=== PATIENT | male | born 1960 | race Caucasian/White ===

== ENCOUNTER 2017-03-18 19:21 | Emergency (ER) | payer BC ==
[2017-03-18] MEDS ORDERED: Acetaminophen TAB* 325 MG PO ONE (20:03)
--- NOTE | 2017-03-18 20:07 | UC ---
HPI Febrile Illness - HPI Summary HPI Summary: 57 YEAR OLD MALE PRESENTS WITH FEVER, CHILLS AND COLD SWEATS. - History of Current Complaint Chief Complaint: UCGeneralIllness Time Seen by Provider: 03/18/17 19:33 - Allergy/Home Medications Allergies/Adverse Reactions: Allergies Allergy/AdvReac Type Severity Reaction Status Date / Time No Known Allergies Allergy Verified 03/18/17 21:34 Home Medications: Home Medications Dasatinib [Sprycel] 20 mg PO 03/18/17 [History] Pravastatin Sodium [Pravachol] 40 mg PO 03/18/17 [History] PMH/Surg Hx/FS Hx/Imm Hx - Surgical History Surgical History: Yes Surgery Procedure, Year, and Place: spinal stenosis cervical, 5 vertebrae fused - Family History Known Family History: Negative: Cardiac Disease, Hypertension, Diabetes - Social History Alcohol Use: None Substance Use Type: None Smoking Status (MU): Never Smoked Tobacco Review of Systems Constitutional: Fever, Chills, Fatigue Skin: Negative Eyes: Negative ENT: Negative Respiratory: Negative Cardiovascular: Negative Gastrointestinal: Negative Genitourinary: Negative Motor: Negative Neurovascular: Negative Musculoskeletal: Negative Neurological: Negative Psychological: Negative All Other Systems Reviewed And Are Negative: Yes Physical Exam Triage Information Reviewed: Yes Appearance: Ill-Appearing Vital Signs: Initial Vital Signs Temp 39.7 C 03/18/17 19:24 Pulse 85 03/18/17 19:24 Resp 20 03/18/17 19:24 BP 116/65 03/18/17 19:24 Pulse Ox 97 03/18/17 19:24 Eye Exam: Normal ENT Exam: Normal Dental Exam: Normal Neck exam: Normal Neck: Positive: 1 Respiratory Exam: Normal Cardiovascular Exam: Normal Abdominal Exam: Normal Musculoskeletal Exam: Normal Neurological Exam: Normal Psychological Exam: Normal Skin Exam: Normal Course/Dx - Diagnoses Clinic Provider Diagnoses: fever. chills. cold sweats Discharge - Discharge Plan Condition: Stable Disposition: HOME Patient Education Materials: Fever in Adults (ED) Referrals: Samuel Yap MD [Primary Care Provider] - Additional Instructions: PATIENT SUGGESTED TO GO TO ER FOR HIGH FEVER.
[2017-03-18 20:45] VITALS: BP 144/74
== END 2017-03-18 20:43 | disposition home or self-care (01) ==
LOC: UCEAST 19:21
DX: R50.9 Fever, unspecified (principal); R61 Generalized hyperhidrosis
CPT/HCPCS: 87502; 99212; A9270-GY; G0463

== ENCOUNTER 2017-03-18 21:22 | Emergency (ER) | payer BC ==
[2017-03-18 23:47] LABS: Hematocrit 33 % (42-52); Hemoglobin 11.3 g/dl (14.0-18.0); Mean Corpuscular HGB Conc 34 g/dl (31-36); Mean Corpuscular Hemoglobin 31 pg (27-31); Mean Corpuscular Volume 91 fL (80-94); Mean Platelet Volume 7 um3 (7.4-10.4); Red Blood Count 3.68 10^6/ul (4.0-5.4); Red Cell Distribution Width 14 % (10.5-15)
[2017-03-18] MEDS ORDERED: Acetaminophen TAB* 325 MG PO ONE (23:54)
[2017-03-19 00:03] LABS: Albumin 4.3 g/dL (3.2-5.2); BUN/Creatinine Ratio 14.6 (8-20); Calcium 9.2 mg/dL (8.6-10.3); EGFR African American 103.8 (>60); EGFR Non-African American 80.7 (>60); Globulin 3.6 g/dL (2-4); Potassium 3.5 mmol/L (3.5-5.0); Total Bilirubin 0.9 mg/dL (0.2-1.0); Total Protein 7.9 g/dL (6.4-8.9)
[2017-03-19 00:53] LABS: Urine Bilirubin Negative (Negative); Urine Glucose Negative (Negative); Urine Nitrite Negative (Negative)
[2017-03-19] MEDS ORDERED: Ibuprofen TAB* 800 MG PO ONE (03:21)
--- NOTE | 2017-03-19 03:24 | ED ---
Debbi Argueta Alfonso, scribed for Ambreen Lester MD on 03/18/17 at 2357 . HPI Febrile Illness - HPI Summary HPI Summary: This patient is a 57 year old M presenting to [facility] with a chief complaint of febrile illness since 3 days ago. The patient rates the pain 3/10 in severity. Symptoms aggravated by nothing. Symptoms alleviated by nothing. Patient reports body aches, tiredness, and scalp lesions (It feels like shingles which I had 4 years ago.). Patient denies rashes, sore throat, urinary symptoms, cough, sinus congestion, and SOB. He denies acknowledged tick bites. He reports exercising two hours a day. PMHx includes chronic myeloid leukemia (diagnosed one year for which he is currently on chemotherapy), HTN, and HLD. - History of Current Complaint Chief Complaint: EDFever Time Seen by Provider: 03/18/17 23:47 Hx Obtained From: Patient Onset/Duration: Started Days Ago - 3, Still Present Timing: Constant Current Severity: Mild Pain Intensity: 3 Pain Scale Used: 0-10 Numeric Aggravating Factors: Nothing Alleviating Factors: Nothing Associated Signs and Symptoms: Other: - body aches, tiredness, and scalp lesions (It feels like shingles which I had 4 years ago.). Patient denies rashes, sore throat, urinary symptoms, cough, sinus congestion, and SOB - Allergy/Home Medications Allergies/Adverse Reactions: Allergies Allergy/AdvReac Type Severity Reaction Status Date / Time No Known Allergies Allergy Verified 03/18/17 21:34 PMH/Surg Hx/FS Hx/Imm Hx Cardiovascular History: Reports: Hx Hypercholesterolemia, Hx Hypertension - Cancer History Cancer Type, Location and Year: CML - Surgical History Surgery Procedure, Year, and Place: spinal stenosis cervical, 5 vertebrae fused Infectious Disease History: No Infectious Disease History: Denies: History Other Infectious Disease, Traveled Outside the [place] in Last 30 Days - Family History Known Family History: Negative: Cardiac Disease, Hypertension, Diabetes - Social History Alcohol Use: None Substance Use Type: Reports: None Smoking Status (MU): Never Smoked Tobacco Review of Systems Positive: Fever Positive: Other - Negative sinus congestion. Negative: Sore Throat Negative: Shortness Of Breath, Cough Positive: no symptoms reported Positive: Myalgia Positive: Other - scalp lesions (It feels like shingles which I had 4 years ago.). Negative: Rash Neurological: Other - tiredness All Other Systems Reviewed And Are Negative: Yes Physical Exam - Summary Physical Exam Summary: General: Well appearing, no pain distress Skin: Warm, Skin Color Reflects Adequate Perfusion, Dry Eyes: EOMI, CHANNING ENT: Pharynx normal, TMs normal Neck: Supple, nontender Respiratory: CTA, breath sounds present, no rhonchi, no wheezes, no rales Cardiovascular: RRR, no murmur, no rub, no gallop Abdomen: Soft, nontender, Non-distended, no guarding, no rebound Bowel: Present Musculoskeletal: SHANNON, No edema Neuro: Sensory/motor intact, A&Ox3, CN intact 2-12 Psych: Affect/mood appropriate Triage Information Reviewed: Yes Vital Signs On Initial Exam: Initial Vitals Temp Pulse Resp BP Pulse Ox 100.2 F 80 18 128/66 97 03/18/17 21:32 03/18/17 21:32 03/18/17 21:32 03/18/17 21:32 03/18/17 21:32 Vital Signs Reviewed: Yes Diagnostics - Vital Signs Vital Signs Temp Pulse Resp BP Pulse Ox 03/18/17 23:49 101.1 F 03/18/17 21:32 100.2 F 80 18 128/66 97 - Laboratory Lab Results: Lab Results 03/18/17 Range/Units 23:25 WBC 5.0 (3.5-10.8) 10^3/ul RBC 3.68 L (4.0-5.4) 10^6/ul Hgb 11.3 L (14.0-18.0) g/dl Hct 33 L (42-52) % MCV 91 (80-94) fL MCH 31 (27-31) pg MCHC 34 (31-36) g/dl RDW 14 (10.5-15) % Plt Count 124 L (150-450) 10^3/ul MPV 7 L (7.4-10.4) um3 Neut % (Auto) 84.6 H (38-83) % Lymph % (Auto) 7.3 L (25-47) % [place]ial[place] % (Auto) 7.7 (1-9) % Eos % (Auto) 0.1 (0-6) % Baso % (Auto) 0.3 (0-2) % Absolute Neuts (auto) 4.2 (1.5-7.7) 10^3/ul Absolute Lymphs (auto) 0.4 L (1.0-4.8) 10^3/ul Absolute Monos (auto) 0.4 (0-0.8) 10^3/ul Absolute Eos (auto) 0 (0-0.6) 10^3/ul Absolute Basos (auto) 0 (0-0.2) 10^3/ul Absolute Nucleated RBC 0.01 10^3/ul Nucleated RBC % 0.2 Result Diagrams: 03/18/17 23:25 03/18/17 23:25 Lab Statement: Any lab studies that have been ordered have been reviewed, and results considered in the medical decision making process. - Radiology CXR Radiology Interpretation Completed By: ED Physician - Negative Course/Dx - Course Course Of Treatment: pt without any localizing symptoms he does have cml but reports that it is under control since diagnosis and he does not usually get antibiotics for uri's. His labs and xray and urine are neg, he denies lyme exposure and will be following with Dr. Yap closely - Diagnoses Provider Diagnoses: Fever Discharge - Discharge Plan Condition: Stable Disposition: HOME Patient Education Materials: Fever in Adults (ED) Referrals: Samuel Yap MD [Primary Care Provider] - 3 Days Additional Instructions: RETURN TO THE EMERGENCY DEPARTMENT FOR CHANGING OR WORSENING SYMPTOMS. The documentation as recorded by the Debbi madrid Alfonso accurately reflects the service I personally performed and the decisions made by , Ambreen Lester MD.
[2017-03-19 03:35] VITALS: BP 130/70
--- NOTE | 2017-03-19 07:46 | RAD ---
HISTORY: Fever COMPARISONS: None VIEWS: 4: Frontal dual-energy and lateral views of the chest. FINDINGS: CARDIOMEDIASTINAL SILHOUETTE: The cardiomediastinal silhouette is normal. ZORAIDA: The zoraida are normal. PLEURA: The costophrenic angles are sharp. No pleural abnormalities are noted. LUNG PARENCHYMA: The lungs are clear. ABDOMEN: The upper abdomen is clear. There is no subphrenic gas. BONES AND SOFT TISSUES: There is postsurgical change to the cervical spine OTHER: None. IMPRESSION: NO ACTIVE CARDIOPULMONARY DISEASE.
== END 2017-03-19 03:37 | disposition home or self-care (01) ==
LOC: ED 21:22
DX: R50.9 Fever, unspecified (principal); R52 Pain, unspecified; R53.1 Weakness
CPT/HCPCS: 36415; 71020; 80053; 81003; 83605; 84484; 85025; 85610; 85730; 87040; 99283; A9270-GY

== ENCOUNTER 2017-03-20 08:10 | Emergency (ER) | payer BC ==
[2017-03-20 08:35] VITALS: BP 108/58
--- NOTE | 2017-03-20 09:13 | UC ---
Skin Complaint HPI - HPI Summary HPI Summary: PT WITH SEVERAL DAYS OF FEVER, MALAISE, FATIGUE AND RASH ON SCALP. CAME HERE TO US 2 DAYS AGO. FLU NEG. SENT TO ER FOR FURTHER EVAL. WENT TO ER AND HAD GROSSLY UNREMARKABLE LABS. NO SPECIFIC DX AT THAT TIME. TOLD TO FOLLOW-UP WITH PCP. PT RETURNS HERE WITH PERSISTENT RASH. STATES HE HAD A SIMILAR THING ABOUT 5 YEARS AGO THAT RESOLVED WITH ABX. PT HAS CML AND IS ON IMMUNOSUPPRESSIVE TX. - History of Current Complaint Chief Complaint: UCRash Time Seen by Provider: 03/20/17 08:36 Stated Complaint: RASH Hx Obtained From: Patient Onset/Duration: Gradual Onset, Lasting Days Timing: Constant Onset Severity: Moderate Current Severity: Moderate Pain Intensity: 6 Pain Scale Used: 0-10 Numeric Location: Other - SCALP Character: Swelling, Redness, Painful Aggravating Factor(s): Touch Alleviating Factor(s): Nothing Associated Signs & Symptoms: Positive: Fever, Rash, Tenderness. Negative: Nausea - Allergy/Home Medications Allergies/Adverse Reactions: Allergies Allergy/AdvReac Type Severity Reaction Status Date / Time No Known Allergies Allergy Verified 03/18/17 21:34 Review of Systems Constitutional: Fever Skin: Rash Respiratory: Negative Cardiovascular: Negative Gastrointestinal: Negative All Other Systems Reviewed And Are Negative: Yes PMH/Surg Hx/FS Hx/Imm Hx Cardiovascular History: Hypertension Other Cancer History: CML - Surgical History Surgical History: Yes Surgery Procedure, Year, and Place: spinal stenosis cervical, 5 vertebrae fused - Family History Known Family History: Negative: Cardiac Disease, Hypertension, Diabetes - Social History Alcohol Use: None Substance Use Type: None Smoking Status (MU): Never Smoked Tobacco Physical Exam Triage Information Reviewed: Yes Appearance: Well-Appearing, No Pain Distress, Well-Nourished Vital Signs: Initial Vital Signs Temp 99.8 F 03/20/17 08:29 Pulse 71 03/20/17 08:29 Resp 18 03/20/17 08:29 BP 108/58 03/20/17 08:29 Pulse Ox 99 03/20/17 08:29 Vital Signs Reviewed: Yes Eyes: Positive: Conjunctiva Clear ENT: Positive: Hearing grossly normal Neck: Positive: Supple Respiratory: Positive: No respiratory distress, No accessory muscle use Cardiovascular: Positive: Pulses Normal Abdomen Description: Positive: Soft Musculoskeletal: Positive: No Edema Neurological: Positive: Alert Psychological: Positive: Age Appropriate Behavior Skin: Positive: rashes - SCALP WITH ERYTHEMA FROM FOREHEAD TO OCCIPUT. TENDER. WARM TO TOUCH. NO DISCRETE LESIONS Course/Dx - Diagnoses Provider Diagnoses: SCALP CELLULITIS Discharge - Discharge Plan Condition: Stable Disposition: HOME Prescriptions: Cephalexin CAP* [Keflex 500 CAP*] 1,000 mg PO BID #40 cap Patient Education Materials: Cellulitis (ED) Referrals: Samuel Yap MD [Primary Care Provider] - If Needed Additional Instructions: FOLLOW-UP WITH YOUR PCP IF YOU DO NOT NOTICE IMPROVEMENT IN YOUR SYMPTOMS OVER THE NEXT 48 HOURS ON ANTIBIOTICS. GO TO THE ER SOONER IF SYMPTOMS WORSEN.
== END 2017-03-20 09:10 | disposition home or self-care (01) ==
LOC: UCEAST 08:10
DX: L03.811 Cellulitis of head [any part, except face] (principal); I10 Essential (primary) hypertension; C92.10 Chronic myeloid leukemia, BCR/ABL-positive, not having achieved remission
CPT/HCPCS: 99212; G0463

== ENCOUNTER 2017-03-22 10:57 | Emergency (ER) | payer BC ==
[2017-03-22 11:07] VITALS: BP 104/68
--- NOTE | 2017-03-22 15:35 | ED ---
Kavita Argueta SooYoung, scribed for Masoud Velez MD on 03/22/17 at 1159 . Skin Complaint - HPI Summary HPI Summary: A 57 y/o M presents to ED with c/o diffuse rash on scalp, R-side forehead, and R periorbital onset three days ago. Pt was seen at [facility] four days ago for not feeling well, he states he had fever and lethargy, no visible rash at that time. Currently, the rash is erythematous, painful, pruritic. His R eye is swollen, but he denies pain and pruritus. Denies visual changes. He's been taking Keflex since which is helping. He notes feeling generally better , less lethargic and is without fever. The rash did not spread toward his eye until this AM. He notes a prev episode about 5 years ago with similar sx, he took an ABX at that time, it went away, he was never given a Dx. PCP is Dr. Yap, went to his office yesterday. - History of Current Complaint Chief Complaint: EDRashSkinAbscess Time Seen by Provider: 03/22/17 11:54 Stated Complaint: SKIN RASH/5DAYS Hx Obtained From: Patient Onset/Duration: Started Days Ago, Still Present Timing: Constant Onset Severity: Moderate Current Severity: Mild Pain Intensity: 2 Pain Scale Used: 0-10 Numeric Skin Location: Diffuse, Face - R forehead, R periorbital, scalp Character: Swelling, Pruritus, Pain, Redness Alleviating Symptom(s): Treatment [employer]: - ABX - Allergy/Home Medications Allergies/Adverse Reactions: Allergies Allergy/AdvReac Type Severity Reaction Status Date / Time No Known Allergies Allergy Verified 03/22/17 11:07 PMH/Surg Hx/FS Hx/Imm Hx Previously Healthy: No Cardiovascular History: Reports: Hx Hypercholesterolemia, Hx Hypertension Sensory History: Denies: Hx Legally Blind Opthamlomology History: Denies: Hx Legally Blind - Cancer History Cancer Type, Location and Year: CML - Surgical History Surgery Procedure, Year, and Place: spinal stenosis cervical, 5 vertebrae fused Infectious Disease History: No Infectious Disease History: Denies: History Other Infectious Disease, Traveled Outside the [place] in Last 30 Days - Family History Known Family History: Negative: Cardiac Disease, Hypertension, Diabetes - Social History Occupation: Employed Full-time Lives: With Family Alcohol Use: None Hx Substance Use: No Substance Use Type: Reports: None Hx Tobacco Use: No Smoking Status (MU): Never Smoked Tobacco Review of Systems Eyes: Other - pos: swelling around R eye Positive: Rash - diffuse All Other Systems Reviewed And Are Negative: Yes Physical Exam Triage Information Reviewed: Yes Vital Signs On Initial Exam: Initial Vitals Temp Pulse Resp BP Pulse Ox 98.7 F 58 14 104/68 99 03/22/17 11:03 03/22/17 11:03 03/22/17 11:03 03/22/17 11:03 03/22/17 11:03 Vital Signs Reviewed: Yes Appearance: Positive: Well-Appearing, No Pain Distress Skin: Positive: Warm, Skin Color Reflects Adequate Perfusion, Dry, Erythema @ - macular erythematous rash over forehead and most of scalp; R-side extends to upper tarsus. rash blanches. Head/Face: Positive: Normal Head/Face Inspection Eyes: Positive: Normal, EOMI - without pain or tenderness ENT: Positive: Normal ENT inspection Neck: Positive: Supple, Nontender Respiratory/Lung Sounds: Positive: Clear to Auscultation, Breath Sounds Present Cardiovascular: Positive: RRR Abdomen Description: Positive: Nontender, Soft Bowel Sounds: Positive: Present Musculoskeletal: Positive: Normal Neurological: Positive: Normal Psychiatric: Positive: Affect/Mood Appropriate Diagnostics - Vital Signs Vital Signs Temp Pulse Resp BP Pulse Ox 03/22/17 11:03 98.7 F 58 14 104/68 99 - Laboratory Lab Statement: Any lab studies that have been ordered have been reviewed, and results considered in the medical decision making process. Course/Dx - Course Course Of Treatment: Mr. Hernandez has had several days of a initially painful and now itchy raised red rash on his arellano. It started after a couple days of not feeling well and having fevers. He was started on Keflex by [facility] and has followed with his PMD and is getting better and feeling better. His rash however which was slightly onto his right upper eyelid is now about alf down his eyelid with a little swelling. It is non-painful and he has full ROM of his eye. I don't think this is cause for concern at this time and that he should continue the Keflex as it appears to be working. - Diagnoses Provider Diagnoses: Cellulitis Discharge - Discharge Plan Condition: Stable Disposition: HOME Patient Education Materials: Cellulitis (ED), Periorbital Cellulitis in Adults (ED) Referrals: Samuel Yap MD [Primary Care Provider] - 3 Days Additional Instructions: Continue your antibiotics as prescribed. Follow up with your primary care provider, Dr. Yap in the next 3 days. Please return to the ED if you experience new or worsening symptoms. The documentation as recorded by the Kavita madrid SooYoung accurately reflects the service I personally performed and the decisions made by me, Masoud Velez MD.
== END 2017-03-22 12:27 | disposition home or self-care (01) ==
LOC: ED 10:57
DX: H00.031 Abscess of right upper eyelid (principal); E78.00 Pure hypercholesterolemia, unspecified; I10 Essential (primary) hypertension
CPT/HCPCS: 99282

== ENCOUNTER 2018-03-31 17:37 | Inpatient (IN) | payer BC ==
[2018-03-31 18:37] LABS: ABS Basophils 0 10^3/ul (0-0.2); ABS Eosinophils 0 10^3/ul (0-0.6); ABS Lymphocytes 0.3 10^3/ul (1.0-4.8); ABS Monocytes 0.5 10^3/ul (0-0.8); ABS Neutrophils 5.8 10^3/ul (1.5-7.7); ABS Nucleated RBC 0 10^3/ul; Eosinophil % 0 % (0-6); Hematocrit 32 % (42-52); Hemoglobin 10.8 g/dl (14.0-18.0); Lymphocyte % 3.9 % (25-47); Mean Corpuscular HGB Conc 34 g/dl (31-36); Mean Corpuscular Hemoglobin 31 pg (27-31); Mean Corpuscular Volume 90 fL (80-94); Mean Platelet Volume 6.9 um3 (7.4-10.4); Nucleated Red Blood Cells % 0; Platelet Count 121 10^3/ul (150-450); Red Blood Count 3.54 10^6/ul (4.00-5.40); Red Cell Distribution Width 15 % (10.5-15); White Blood Count 6.6 10^3/ul (3.5-10.8)
[2018-03-31 18:52] LABS: EGFR Non-African American 78.6 (>60)
[2018-03-31 20:29] LABS: Urine Appearance Cloudy; Urine Blood Negative (Negative); Urine Color Amber; Urine Ketones 1+ (Negative); Urine Protein 1+(30 mg/dL) (Negative); Urine Red Blood Cell Absent (Absent); Urine Specific Gravity 1.026 (1.010-1.030); Urine Urobilinogen Negative (Negative); Urine White Blood Cell Trace(0-5/hpf) (Absent)
[2018-03-31] MEDS ORDERED: Acetaminophen TAB* 325 MG PO ONE (21:01)
[2018-03-31] MEDS ORDERED: Piperacillin/Tazobac ADVAN(*) 3.375 GM in NS 0.9% 100 ML* 100 ML IVPB ONE (21:03)
[2018-03-31] MEDS ORDERED: Vancomycin(*) 1,000 MG in NS 0.9% 250 ML* 250 ML IVPB ONE (21:03)
[2018-03-31] MEDS ORDERED: NS 0.9% 1000 ML* 2,700 ML IV ONE (21:04)
[2018-03-31] MEDS ORDERED: Potassium Chlor TAB* 20 MEQ TAB.ER PO ONE (21:04)
--- NOTE | 2018-03-31 21:10 | ED ---
Abdominal Pain/Male - HPI Summary HPI Summary: A 58 y/o male presents to ED c/o diffuse abdominal pain reaching 6/10 in severity. In the ED room, the patient has a pulse of 75 BPM, O2 saturation of 96 % and blood pressure of 120/69. As per triage, "Pt reports flu like symptoms - body aches, fever up to 102, and abdominal pain. Pt denies N/V/D. 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 Pt currently receiving chemo and radiation". According to the patient he has been experiencing a fever as well as abdominal pain for the past 2 days. He denies any sore throat, SOB or back pain, however is constipated (acute). He stated that he is still on chemotherapy and his latest round was last night. He does not have a port, but takes oral pills for his therapy. He was Dx 2 years ago and has been taking the pills ever since. Oncologist is at [facility]. No pain medications at home. - History of Current Complaint Chief Complaint: EDAbdPain Stated Complaint: FEVER/ABD PAIN/HEADACHE Time Seen by Provider: 03/31/18 20:53 Hx Obtained From: Patient Onset/Duration: Sudden Onset, Lasting Days, Still Present Timing: Constant Severity Initially: Moderate Severity Currently: Moderate Pain Intensity: 6 Pain Scale Used: 0-10 Numeric Location: Diffuse Radiates: No Aggravating Factor(s): Nothing Alleviating Factor(s): Nothing Associated Signs And Symptoms: Positive: Constipation. Negative: Back Pain - Allergies/Home Medications Allergies/Adverse Reactions: Allergies Allergy/AdvReac Type Severity Reaction Status Date / Time No Known Allergies Allergy Verified 03/22/17 11:07 PMH/Surg Hx/FS Hx/Imm Hx Cardiovascular History: Reports: Hx Hypercholesterolemia, Hx Hypertension Sensory History: Denies: Hx Legally Blind Opthamlomology History: Denies: Hx Legally Blind - Cancer History Cancer Type, Location and Year: CML - Surgical History Surgery Procedure, Year, and Place: spinal stenosis cervical, 5 vertebrae fused Infectious Disease History: No Infectious Disease History: Denies: History Other Infectious Disease, Traveled Outside the [place] in Last 30 Days - Family History Known Family History: Negative: Cardiac Disease, Hypertension, Diabetes - Social History Alcohol Use: None Hx Substance Use: No Substance Use Type: Reports: None Hx Tobacco Use: No Smoking Status (MU): Never Smoked Tobacco Review of Systems Positive: Fever Negative: Sore Throat Negative: Shortness Of Breath Positive: Abdominal Pain, Other - POSITIVE: Constipation Positive: Other - NEGATIVE: Back pain All Other Systems Reviewed And Are Negative: Yes Physical Exam - Summary Physical Exam Summary: VITAL SIGNS: Reviewed. GENERAL: Patient is a well-developed and nourished male who is lying comfortable in the stretcher. Patient is not in any acute respiratory distress. HEAD AND FACE: No signs of trauma. No ecchymosis, hematomas or skull depressions. No sinus tenderness. EYES: PERRLA, EOMI x 2, No injected conjunctiva, no nystagmus. EARS: Hearing grossly intact. Ear canals and tympanic membranes are within normal limits. MOUTH: Oropharynx within normal limits. NECK: Supple, trachea is midline, no adenopathy, no JVD, no carotid bruit, no c- spine tenderness, neck with full ROM. CHEST: Symmetric, no tenderness at palpation LUNGS: Clear to auscultation bilaterally. No wheezing or crackles. CVS: Regular rate and rhythm, S1 and S2 present, no murmurs or gallops appreciated. ABDOMEN: Soft, mildly diffuse tenderness. Abdomen is distended. No rebound no guarding, and no masses palpated. Hypoactive bowel sounds EXTREMITIES: FROM in all major joints, no edema, no cyanosis or clubbing. NEURO: Alert and oriented x 3. No acute neurological deficits. Speech is normal and follows commands. SKIN: Dry and warm Triage Information Reviewed: Yes Vital Signs On Initial Exam: Initial Vitals Temp Pulse Resp BP Pulse Ox 99.6 F 75 16 128/65 96 03/31/18 17:52 03/31/18 17:52 03/31/18 17:52 03/31/18 17:52 03/31/18 17:52 Vital Signs Reviewed: Yes Diagnostics - Vital Signs Vital Signs Temp Pulse Resp BP Pulse Ox 03/31/18 20:55 74 120/69 96 03/31/18 20:52 78 96 03/31/18 20:05 100.4 F 77 15 119/56 96 03/31/18 17:52 99.6 F 75 16 128/65 96 - Laboratory Lab Results: Lab Results 03/31/18 03/31/18 03/31/18 Range/Units 18:22 18:22 18:25 WBC 6.6 (3.5-10.8) 10^3/ul RBC 3.54 L (4.00-5.40) 10^6/ul Hgb 10.8 L (14.0-18.0) g/dl Hct 32 L (42-52) % MCV 90 (80-94) fL MCH 31 (27-31) pg MCHC 34 (31-36) g/dl RDW 15 (10.5-15) % Plt Count 121 L (150-450) 10^3/ul MPV 6.9 L (7.4-10.4) um3 Neut % (Auto) 88.5 H (38-83) % Lymph % (Auto) 3.9 L (25-47) % [place] % (Auto) 7.3 H (0-7) % Eos % (Auto) 0 (0-6) % Baso % (Auto) 0.3 (0-2) % Absolute Neuts (auto) 5.8 (1.5-7.7) 10^3/ul Absolute Lymphs (auto) 0.3 L (1.0-4.8) 10^3/ul Absolute Monos (auto) 0.5 (0-0.8) 10^3/ul Absolute Eos (auto) 0 (0-0.6) 10^3/ul Absolute Basos (auto) 0 (0-0.2) 10^3/ul Absolute Nucleated RBC 0 10^3/ul Nucleated RBC % 0 Sodium 133 L (135-145) mmol/L Potassium 3.1 L (3.5-5.0) mmol/L Chloride 103 (101-111) mmol/L Carbon Dioxide 23 (22-32) mmol/L Anion Gap 7 (2-11) mmol/L BUN 16 (6-24) mg/dL Creatinine 0.98 (0.67-1.17) mg/dL Est GFR ( Amer) 95.1 (>60) Est GFR (Non-Af Amer) 78.6 (>60) BUN/Creatinine Ratio 16.3 (8-20) Glucose 116 H (70-100) mg/dL Lactic Acid 0.5 (0.5-2.0) mmol/L Calcium 8.4 L (8.6-10.3) mg/dL Total Bilirubin 1.00 (0.2-1.0) mg/dL AST 19 (13-39) U/L ALT 25 (7-52) U/L Alkaline Phosphatase 44 (34-104) U/L C-Reactive Protein 161.67 H (<8.01) mg/L Total Protein 7.3 (6.4-8.9) g/dL Albumin 4.1 (3.2-5.2) g/dL Globulin 3.2 (2-4) g/dL Albumin/Globulin Ratio 1.3 (1-3) Lipase 13 (11.0-82.0) U/L Urine Color Urine Appearance Urine pH (5-9) Ur Specific [place] (1.010-1.030) Urine Protein (Negative) Urine Ketones (Negative) Urine Blood (Negative) Urine Nitrate (Negative) Urine Bilirubin (Negative) Urine Urobilinogen (Negative) Ur Leukocyte Esterase (Negative) Urine WBC (Auto) (Absent) Urine RBC (Auto) (Absent) Ur Squamous Epith Cells (Absent) Urine Bacteria (Absent) Urine Glucose (Negative) 03/31/18 Range/Units 20:10 WBC (3.5-10.8) 10^3/ul RBC (4.00-5.40) 10^6/ul Hgb (14.0-18.0) g/dl Hct (42-52) % MCV (80-94) fL MCH (27-31) pg MCHC (31-36) g/dl RDW (10.5-15) % Plt Count (150-450) 10^3/ul MPV (7.4-10.4) um3 Neut % (Auto) (38-83) % Lymph % (Auto) (25-47) % [place] % (Auto) (0-7) % Eos % (Auto) (0-6) % Baso % (Auto) (0-2) % Absolute Neuts (auto) (1.5-7.7) 10^3/ul Absolute Lymphs (auto) (1.0-4.8) 10^3/ul Absolute Monos (auto) (0-0.8) 10^3/ul Absolute Eos (auto) (0-0.6) 10^3/ul Absolute Basos (auto) (0-0.2) 10^3/ul Absolute Nucleated RBC 10^3/ul Nucleated RBC % Sodium (135-145) mmol/L Potassium (3.5-5.0) mmol/L Chloride (101-111) mmol/L Carbon Dioxide (22-32) mmol/L Anion Gap (2-11) mmol/L BUN (6-24) mg/dL Creatinine (0.67-1.17) mg/dL Est GFR ( Amer) (>60) Est GFR (Non-Af Amer) (>60) BUN/Creatinine Ratio (8-20) Glucose (70-100) mg/dL Lactic Acid (0.5-2.0) mmol/L Calcium (8.6-10.3) mg/dL Total Bilirubin (0.2-1.0) mg/dL AST (13-39) U/L ALT (7-52) U/L Alkaline Phosphatase (34-104) U/L C-Reactive Protein (<8.01) mg/L Total Protein (6.4-8.9) g/dL Albumin (3.2-5.2) g/dL Globulin (2-4) g/dL Albumin/Globulin Ratio (1-3) Lipase (11.0-82.0) U/L Urine Color Meenakshi Urine Appearance Cloudy Urine pH 5.0 (5-9) Ur Specific [place] 1.026 (1.010-1.030) Urine Protein 1+(30 mg/dl) A (Negative) Urine Ketones 1+ A (Negative) Urine Blood Negative (Negative) Urine Nitrate Negative (Negative) Urine Bilirubin Negative (Negative) Urine Urobilinogen Negative (Negative) Ur Leukocyte Esterase Negative (Negative) Urine WBC (Auto) Trace(0-5/hpf) (Absent) Urine RBC (Auto) Absent (Absent) Ur Squamous Epith Cells Present A (Absent) Urine Bacteria Absent (Absent) Urine Glucose Negative (Negative) Result Diagrams: 03/31/18 18:22 03/31/18 18:25 Lab Statement: Any lab studies that have been ordered have been reviewed, and results considered in the medical decision making process. - Radiology CXR Radiology Interpretation Completed By: ED Physician - No acute process. Pending official report. - CT CT A/P CT Interpretation Completed By: Radiologist - 1. Concerning findings of a primary neoplasm involving the mid transverse colon. Correlation with colonoscopy recommended. 2. Nonspecific right perinephric inflammation with no additional evidence of pyelonephritis. 3. Small right pleural effusion and associated right lower lobe volume loss. ED PHYSICIAN REVIEWED THIS RADIOLOGY REPORT. Re-Evaluation - Re-Evaluation First Eval Re-Evaluation Time: 23:59 Comment: Hospitalist contacted, no report taken. Abdominal Pain Fem Course/Dx - Course Course Of Treatment: A 58 y/o male presents to ED c/o diffuse abdominal pain reaching 6/10 in severity. In the ED room, the patient has a pulse of 75 BPM, O2 saturation of 96% and blood pressure of 120/69. A CT A/P revealed 1. Concerning findings of a primary neoplasm involving the mid transverse colon. Correlation with colonoscopy recommended. 2. Nonspecific right perinephric inflammation with no additional evidence of pyelonephritis. 3. Small right pleural effusion and associated right lower lobe volume loss. A CXR revealed no acute process. In the ED course, the patient recieved Tylenol, Omnipaque, Klor Con Er Tab, Vancomycin, Piperacillin and IV fluids. Patient care was discussed with hospitalist, Dr. Moon who accepts patient for admission. Patient will be admitted with a diagnosis of fever and CML. Patient is agreeable with this plan. - Diagnoses Provider Diagnoses: CML (chronic myelocytic leukemia), Fever - Provider Notifications Discussed Care Of Patient With: Mary Ellen Moon Time Discussed With Above Provider: 03:05 Instructed by Provider To: Other - Accepts patient for admission Discharge - Sign-Out/Discharge Documenting (check all that apply): Patient Departure - ADMIT, Sign-Out Patient Signing out patient TO: Mary Ellen Moon Receiving patient FROM: Eulogio Naidu - Discharge Plan Condition: Stable Disposition: ADMITTED TO [facility] Referrals: Samuel Yap MD [Primary Care Provider] - - Attestation Statements Document Initiated by Rosa Mariaibchantal: Yes Documenting Scribe: Taqueria Ramon Provider For Whom Devang is Documenting (Include Credential): MD Devang Rg Attestation: Taqueria Argueta, mised for Eulogio Naidu MD on 04/01/18 at 9389.
[2018-03-31] MEDS ORDERED: Iohexol 300* (CONTRAST) 10 ML SDV IV ONE (21:42)
--- NOTE | 2018-03-31 23:02 | RAD ---
EXAM: CT Abdomen and Pelvis With Intravenous Contrast EXAM DATE/TIME: 03/31/2018 10:00 PM CLINICAL HISTORY: 58 years old, male; Pain; Abdominal pain; Generalized; Additional info: Abd pain TECHNIQUE: Axial computed tomography images of the abdomen and pelvis with intravenous contrast. All CT scans at this facility use at least one of these dose optimization techniques: automated exposure control; mA and/or kV adjustment per patient size (includes targeted exams where dose is matched to clinical indication); or iterative reconstruction. Coronal and sagittal reformatted images were created and reviewed. CONTRAST: 121 ml of OMNI 300 administered intravenously. COMPARISON: No relevant prior studies available. FINDINGS: Lower thorax: Small right pleural effusion with compressive atelectasis posterior right lower lobe. No left effusion. ABDOMEN: Liver: Normal. No mass. Gallbladder and bile ducts: Normal. No calcified stones. No ductal dilation. Pancreas: Normal. No ductal dilation. Spleen: Normal. No splenomegaly. Adrenals: Normal. No mass. Kidneys and ureters: No renal solid cortical lesions, calculi, or pelvocaliectasis. Mild right perinephric and paranephric stranding. Normal right renal cortical enhancement. Stomach and bowel: Incompletely distended grossly normal stomach. Normal caliber small bowel. Segmental area of circumferential wall thickening involving the mid sigmoid colon (series 601, image 47) with mild prominence of the colon prior to the narrowing. Minimal adjacent meso colonic stranding. The remaining colon is normal. Appendix: Normal caliber appendix without wall thickening or adjacent inflammation. PELVIS: Bladder: Thin-walled bladder with no focal nodularity, perivesicular stranding, or calcifications. Reproductive: Normal sized prostate. Normal seminal vesicles. ABDOMEN and PELVIS: Intraperitoneal space: Normal. No free air. No significant fluid collection. Bones/joints: The spine demonstrates mild degenerative changes at multiple levels. Mild bilateral hip primary osteoarthritis. Soft tissues: Normal. No hernia. Vasculature: The aorta demonstrates mild atherosclerotic calcification. Patent IVC. Lymph nodes: Normal. No enlarged lymph nodes. IMPRESSION: 1. Concerning findings of a primary neoplasm involving the mid transverse colon. Correlation with colonoscopy recommended. 2. Nonspecific right perinephric inflammation with no additional evidence of pyelonephritis. 3. Small right pleural effusion and associated right lower lobe volume loss. To contact [facility] with a general question: [facility] - [phone] For direct physician to physician contact: Physician Hotline - [phone] [facility] (ad Facility ID #[id number])
[2018-04-01] MEDS ORDERED: NS 0.9% 1000 ML* 1,000 ML IV SCH (03:15)
--- NOTE | 2018-04-01 03:37 | ADMNOTE ---
Subjective Date of Service: 04/01/18 Interval History: this is a h/p for admission hpi 58 yr old wm with hx of cml still on oral tx still presented to er with c/o of fever to 102 one day with associated abd pain for 2 days. pt described as intermittant dull type localized intensity 5/10. bm makes it better nothing has made it worse. constipation for one day as well. last colonoscopy was 1 yr ago and was told it was good. fever to 38.5. blood culture done and started with vanco and zosyn initial wbc is 13.5 Family History: Findings - denied htn/cm/cad/cva/cml Social History: Findings - no cig for 30 yrs no etoh for 12 yrs no ivda walks indept lives alone Past Medical History: Findings - phx cml chronic anemia hg is 10.5 base hx of etoh but quit 12 yrs ago spinal stenosis htn chronic insomnia pshx one Review of Systems - Measurements Intake and Output: Intake and Output Last 24 Hours 03/29/18 03/30/18 03/31/18 04/01/18 06:59 06:59 06:59 06:59 Intake Total 2950 Balance 2950 Weight 200 lb Intake: IV Fluids 2950 Objective Active Medications: Acetaminophen (Tylenol Tab*) 650 mg PO Q4H PRN PRN Reason: FEVER/PAIN Heparin Sodium (Porcine) (Heparin Vial(*)) 5,000 units SUBCUT Q8HR [facility] Sodium Chloride (Ns 0.9% 1000 Ml*) 1,000 mls @ 100 mls/hr IV PER RATE [facility] Stop: 04/01/18 13:14 Piperacillin Sod/Tazobactam (Sod 3.375 gm/ Sodium Chloride) 100 mls @ 25 mls/ hr IVPB Q8HR [facility] Vancomycin HCl / Sodium (Chloride) 250 mls @ 166.667 mls/hr IVPB .CONTINUE PROTOCOL JESUS; Protocol Vital Signs - 8 hr 03/31/18 03/31/18 03/31/18 20:05 20:52 20:55 Temperature 100.4 F Pulse Rate 77 78 74 Respiratory 15 Rate Blood Pressure 119/56 120/69 (mmHg) O2 Sat by Pulse 96 96 96 Oximetry 03/31/18 03/31/18 03/31/18 21:00 22:08 23:00 Temperature Pulse Rate 76 70 62 Respiratory Rate Blood Pressure (mmHg) O2 Sat by Pulse 97 97 96 Oximetry 04/01/18 04/01/18 04/01/18 00:00 00:02 00:25 Temperature Pulse Rate 61 63 69 Respiratory Rate Blood Pressure 124/76 (mmHg) O2 Sat by Pulse 97 96 98 Oximetry 04/01/18 04/01/18 01:00 02:00 Temperature Pulse Rate 66 64 Respiratory Rate Blood Pressure (mmHg) O2 Sat by Pulse 98 97 Oximetry Eyes: No Scleral Icterus, PERRLA Ears/Nose/Mouth/Throat: NL Teeth, Lips, Gums, Clear Oropharnyx, Mucous Membranes Moist Neck: NL Appearance and Movements; NL JVP, Trachea Midline, No Thyroid Enlargement, Masses Respiratory: Symmetrical Chest Expansion and Respiratory Effort, Clear to Auscultation Cardiovascular: NL Sounds; No Murmurs; No JVD, RRR, No Edema Abdominal: - - + bs Extremities: No Edema, No Clubbing, Cyanosis, - Skin: No Rash or Ulcers Neurological: Alert and Oriented x 3, NL Sensation, NL Muscle Strength and Tone Result Diagrams: 04/03/18 07:05 04/03/18 07:05 Additional Lab and Data: Lab Results 03/31/18 03/31/18 03/31/18 Range/Units 18:22 18:22 18:25 WBC 6.6 (3.5-10.8) 10^3/ul RBC 3.54 L (4.00-5.40) 10^6/ul Hgb 10.8 L (14.0-18.0) g/dl Hct 32 L (42-52) % MCV 90 (80-94) fL MCH 31 (27-31) pg MCHC 34 (31-36) g/dl RDW 15 (10.5-15) % Plt Count 121 L (150-450) 10^3/ul MPV 6.9 L (7.4-10.4) um3 Neut % (Auto) 88.5 H (38-83) % Lymph % (Auto) 3.9 L (25-47) % [place] % (Auto) 7.3 H (0-7) % Eos % (Auto) 0 (0-6) % Baso % (Auto) 0.3 (0-2) % Absolute Neuts (auto) 5.8 (1.5-7.7) 10^3/ul Absolute Lymphs (auto) 0.3 L (1.0-4.8) 10^3/ul Absolute Monos (auto) 0.5 (0-0.8) 10^3/ul Absolute Eos (auto) 0 (0-0.6) 10^3/ul Absolute Basos (auto) 0 (0-0.2) 10^3/ul Absolute Nucleated RBC 0 10^3/ul Nucleated RBC % 0 Sodium 133 L (135-145) mmol/L Potassium 3.1 L (3.5-5.0) mmol/L Chloride 103 (101-111) mmol/L Carbon Dioxide 23 (22-32) mmol/L Anion Gap 7 (2-11) mmol/L BUN 16 (6-24) mg/dL Creatinine 0.98 (0.67-1.17) mg/dL Est GFR ( Amer) 95.1 (>60) Est GFR (Non-Af Amer) 78.6 (>60) BUN/Creatinine Ratio 16.3 (8-20) Glucose 116 H (70-100) mg/dL Lactic Acid 0.5 (0.5-2.0) mmol/L Calcium 8.4 L (8.6-10.3) mg/dL Total Bilirubin 1.00 (0.2-1.0) mg/dL AST 19 (13-39) U/L ALT 25 (7-52) U/L Alkaline Phosphatase 44 (34-104) U/L C-Reactive Protein 161.67 H (<8.01) mg/L Total Protein 7.3 (6.4-8.9) g/dL Albumin 4.1 (3.2-5.2) g/dL Globulin 3.2 (2-4) g/dL Albumin/Globulin Ratio 1.3 (1-3) Lipase 13 (11.0-82.0) U/L Urine Color Urine Appearance Urine pH (5-9) Ur Specific [place] (1.010-1.030) Urine Protein (Negative) Urine Ketones (Negative) Urine Blood (Negative) Urine Nitrate (Negative) Urine Bilirubin (Negative) Urine Urobilinogen (Negative) Ur Leukocyte Esterase (Negative) Urine WBC (Auto) (Absent) Urine RBC (Auto) (Absent) Ur Squamous Epith Cells (Absent) Urine Bacteria (Absent) Urine Glucose (Negative) 10/10/18 Range/Units 20:10 WBC (3.5-10.8) 10^3/ul RBC (4.00-5.40) 10^6/ul Hgb (14.0-18.0) g/dl Hct (42-52) % MCV (80-94) fL MCH (27-31) pg MCHC (31-36) g/dl RDW (10.5-15) % Plt Count (150-450) 10^3/ul MPV (7.4-10.4) um3 Neut % (Auto) (38-83) % Lymph % (Auto) (25-47) % [place] % (Auto) (0-7) % Eos % (Auto) (0-6) % Baso % (Auto) (0-2) % Absolute Neuts (auto) (1.5-7.7) 10^3/ul Absolute Lymphs (auto) (1.0-4.8) 10^3/ul Absolute Monos (auto) (0-0.8) 10^3/ul Absolute Eos (auto) (0-0.6) 10^3/ul Absolute Basos (auto) (0-0.2) 10^3/ul Absolute Nucleated RBC 10^3/ul Nucleated RBC % Sodium (135-145) mmol/L Potassium (3.5-5.0) mmol/L Chloride (101-111) mmol/L Carbon Dioxide (22-32) mmol/L Anion Gap (2-11) mmol/L BUN (6-24) mg/dL Creatinine (0.67-1.17) mg/dL Est GFR ( Amer) (>60) Est GFR (Non-Af Amer) (>60) BUN/Creatinine Ratio (8-20) Glucose (70-100) mg/dL Lactic Acid (0.5-2.0) mmol/L Calcium (8.6-10.3) mg/dL Total Bilirubin (0.2-1.0) mg/dL AST (13-39) U/L ALT (7-52) U/L Alkaline Phosphatase (34-104) U/L C-Reactive Protein (<8.01) mg/L Total Protein (6.4-8.9) g/dL Albumin (3.2-5.2) g/dL Globulin (2-4) g/dL Albumin/Globulin Ratio (1-3) Lipase (11.0-82.0) U/L Urine Color Meenakshi Urine Appearance Cloudy Urine pH 5.0 (5-9) Ur Specific [place] 1.026 (1.010-1.030) Urine Protein 1+(30 mg/dl) A (Negative) Urine Ketones 1+ A (Negative) Urine Blood Negative (Negative) Urine Nitrate Negative (Negative) Urine Bilirubin Negative (Negative) Urine Urobilinogen Negative (Negative) Ur Leukocyte Esterase Negative (Negative) Urine WBC (Auto) Trace(0-5/hpf) (Absent) Urine RBC (Auto) Absent (Absent) Ur Squamous Epith Cells Present A (Absent) Urine Bacteria Absent (Absent) Urine Glucose Negative (Negative) Microbiology and Other Data: Microbiology 04/01/18 00:45 Influenza Types A,B Antigen - Final Nasopharyngeal Specimen received for Influenza A/B Molecular testing Assess/Plan/Problems-Billing Assessment: 58 yr old wm with hx of cml on oral med daily presented to er with c/o of llq abd pain with constipation and fever ct abd + colon mass pt got zosyn and vanco from er - Patient Problems (1) Colonic mass Current Visit: Yes Status: Acute Code(s): K63.9 - DISEASE OF INTESTINE, UNSPECIFIED SNOMED Code(s): 142759848 (2) Abdominal pain Current Visit: Yes Status: Acute Code(s): R10.9 - UNSPECIFIED ABDOMINAL PAIN SNOMED Code(s): 64290332 Comment: no sig pain serial abdominal exams (3) HTN (hypertension) Current Visit: Yes Status: Acute Code(s): I10 - ESSENTIAL (PRIMARY) HYPERTENSION SNOMED Code(s): 06650936 Comment: wnl continue outpt med (4) Insomnia Current Visit: Yes Status: Chronic Code(s): G47.00 - INSOMNIA, UNSPECIFIED SNOMED Code(s): 418534624 Comment: prn trazadone (5) Chronic anemia Current Visit: Yes Status: Acute Code(s): D64.9 - ANEMIA, UNSPECIFIED SNOMED Code(s): 706254963 Comment: stable moninter cbc trend
[2018-04-01] MEDS ORDERED: Indomethacin CAP* 50 MG PO PRN (03:51)
[2018-04-01] MEDS ORDERED: Vancomycin(*) 0 MG in NS 0.9% 250 ML* 250 ML IVPB SCH (04:00)
[2018-04-01] MEDS ORDERED: Vancomycin per Pharmacy* NOTE FOLLOW UP PRN (05:08)
[2018-04-01] MEDS: Piperacillin/Tazobac ADVAN(*) 3.375 GM in NS 0.9% 100 ML* 100 ML IVPB SCH ×3 (05:55→21:07)
[2018-04-01] MEDS: Heparin VIAL(*) 5000 UNITS/ML VIAL (FIVE THOUSAND) SUBCUT SCH ×3 (05:56→21:48)
[2018-04-01] MEDS ORDERED: DASATINIB PO SCH (06:00)
[2018-04-01 06:40] LABS: INR 1.1 (0.77-1.02)
[2018-04-01 06:46] LABS: EGFR Non-African American 84.5 (>60)
[2018-04-01 07:48] LABS: ABS Basophils 0 10^3/ul (0-0.2); ABS Eosinophils 0 10^3/ul (0-0.6); ABS Lymphocytes 0.3 10^3/ul (1.0-4.8); ABS Monocytes 0.5 10^3/ul (0-0.8); ABS Neutrophils 4.2 10^3/ul (1.5-7.7); ABS Nucleated RBC 0 10^3/ul; Eosinophil % 0.2 % (0-6); Hematocrit 31 % (42-52); Hemoglobin 10.9 g/dl (14.0-18.0); Lymphocyte % 5.2 % (25-47); Mean Corpuscular HGB Conc 36 g/dl (31-36); Mean Corpuscular Hemoglobin 32 pg (27-31); Mean Corpuscular Volume 89 fL (80-94); Nucleated Red Blood Cells % 0.2; Red Blood Count 3.43 10^6/ul (4.00-5.40); Red Cell Distribution Width 16 % (10.5-15); White Blood Count 4.9 10^3/ul (3.5-10.8)
--- NOTE | 2018-04-01 07:58 | RAD ---
HISTORY: Fever COMPARISONS: March 18, 2017 VIEWS: 1: frontal AP view of the chest at 9:26 PM FINDINGS: LINES AND TUBES: None. CARDIOMEDIASTINAL SILHOUETTE: The cardiomediastinal silhouette is normal for portable technique. PLEURA: The costophrenic angles are sharp. No pleural abnormalities are noted. LUNG PARENCHYMA: There is minimal patchy alveolar opacification of the right lung base. ABDOMEN: The upper abdomen is clear. There is no subphrenic gas. BONES AND SOFT TISSUES: Degenerative changes are noted. The patient is status post cervical fusion. IMPRESSION: MILD RIGHT BASILAR ATELECTASIS VERSUS EARLY CONSOLIDATION. R0
--- NOTE | 2018-04-01 08:46 | PN ---
<Mary Ellen Moon - Last Filed: 04/01/18 08:57> Subjective Family History: Findings - denied any htn/dm/cad/cva or cml from family Social History: Findings - quit cig 30 yrs ago quit etoh 12 yrs ago no ivda lives alone able to walk indept Past Medical History: Findings - cml on chemo hx of etoh but quit 12 yrs ago htn gout insomnia melissa spinal stenosis pshx denied Objective Active Medications: Acetaminophen (Tylenol Tab*) 650 mg PO Q4H PRN PRN Reason: FEVER/PAIN Atorvastatin Calcium (Lipitor*) 10 mg PO 2100 [facility] Heparin Sodium (Porcine) (Heparin Vial(*)) 5,000 units SUBCUT Q8HR [facility] Last Admin: 04/01/18 05:56 Dose: 5,000 units Sodium Chloride (Ns 0.9% 1000 Ml*) 1,000 mls @ 100 mls/hr IV PER RATE [facility] Stop: 04/01/18 13:14 Last Admin: 04/01/18 05:00 Dose: 100 mls/hr Piperacillin Sod/Tazobactam (Sod 3.375 gm/ Sodium Chloride) 100 mls @ 25 mls/ hr IVPB Q8H [facility] Last Admin: 04/01/18 05:55 Dose: 25 mls/hr Vancomycin HCl 1,500 mg/ (Sodium Chloride) 250 mls @ 166.667 mls/hr IVPB Q12H [facility] Indomethacin (Indocin Cap*) 50 mg PO TID PRN PRN Reason: PAIN Losartan Potassium (Cozaar Tab*) 50 mg PO 2100 JESUS Pto Nf Med* Dasatanib (Sprycel) 140 Mg Tablet 140 admin PO 0600 [facility] Last Admin: 04/01/18 06:12 Dose: 140 admin Pharmacy Consult (Vancomycin Per Pharmacy*) 1 note FOLLOW UP . PRN PRN Reason: PER PROTOCOL Pharmacy Profile Note (Vancomycin Trough Check) 1 note FOLLOW UP 1030 ONE Stop: 04/03/18 10:31 Trazodone HCl (Desyrel Tab*) 150 mg PO BEDTIME [facility] Vital Signs - 8 hr 04/01/18 04/01/18 04/01/18 01:00 02:00 03:04 Temperature Pulse Rate 66 64 75 Respiratory Rate Blood Pressure (mmHg) O2 Sat by Pulse 98 97 97 Oximetry 04/01/18 04/01/18 04/01/18 03:18 04:00 04:51 Temperature 100.0 F Pulse Rate 72 79 78 Respiratory 18 Rate Blood Pressure 128/71 128/71 (mmHg) O2 Sat by Pulse 96 97 100 Oximetry 04/01/18 04/01/18 05:15 07:48 Temperature 99.3 F 99.6 F Pulse Rate 84 70 Respiratory 22 18 Rate Blood Pressure 142/68 148/78 (mmHg) O2 Sat by Pulse 98 97 Oximetry Eyes: No Scleral Icterus, PERRLA Ears/Nose/Mouth/Throat: NL Teeth, Lips, Gums, Clear Oropharnyx, Mucous Membranes Moist Neck: NL Appearance and Movements; NL JVP, Trachea Midline, No Thyroid Enlargement, Masses Respiratory: Symmetrical Chest Expansion and Respiratory Effort, Clear to Auscultation Cardiovascular: NL Sounds; No Murmurs; No JVD, RRR, No Edema Abdominal: - - + bs soft non tender but distened Extremities: No Edema, No Clubbing, Cyanosis Skin: No Rash or Ulcers Neurological: Alert and Oriented x 3, NL Sensation, NL Muscle Strength and Tone Result Diagrams: 04/01/18 05:52 04/01/18 05:52 Microbiology and Other Data: Microbiology 04/01/18 00:45 Influenza Types A,B Antigen - Final Nasopharyngeal Specimen received for Influenza A/B Molecular testing EKG Data: ekg ns no acute st t changes <Renetta Thomas - Last Filed: 04/01/18 18:28> Subjective Date of Service: 04/01/18 Interval History: Patient reports he continues to feel a little unwell with mild temp, mild MARLOW but reports he feels a little better than yesterday. He continues to have significant abdominal bloating with "lots of gas moving around" but reports pain has improved since having a bowel movement. No N/V. Objective Active Medications: Acetaminophen (Tylenol Tab*) 650 mg PO Q4H PRN PRN Reason: FEVER/PAIN Atorvastatin Calcium (Lipitor*) 10 mg PO 2100 J[facility]US Heparin Sodium (Porcine) (Heparin Vial(*)) 5,000 units SUBCUT Q8HR [facility] Last Admin: 04/01/18 05:56 Dose: 5,000 units Sodium Chloride (Ns 0.9% 1000 Ml*) 1,000 mls @ 100 mls/hr IV PER RATE [facility] Stop: 04/01/18 13:14 Last Admin: 04/01/18 05:00 Dose: 100 mls/hr Piperacillin Sod/Tazobactam (Sod 3.375 gm/ Sodium Chloride) 100 mls @ 25 mls/ hr IVPB Q8H [facility] Last Admin: 04/01/18 05:55 Dose: 25 mls/hr Vancomycin HCl 1,500 mg/ (Sodium Chloride) 250 mls @ 166.667 mls/hr IVPB Q12H [facility] Indomethacin (Indocin Cap*) 50 mg PO TID PRN PRN Reason: PAIN Losartan Potassium (Cozaar Tab*) 50 mg PO 2100 [facility] Pto Nf Med* Dasatanib (Sprycel) 140 Mg Tablet 140 admin PO 0600 [facility] Last Admin: 04/01/18 06:12 Dose: 140 admin Pharmacy Consult (Vancomycin Per Pharmacy*) 1 note FOLLOW UP . PRN PRN Reason: PER PROTOCOL Pharmacy Profile Note (Vancomycin Trough Check) 1 note FOLLOW UP 1030 ONE Stop: 04/03/18 10:31 Trazodone HCl (Desyrel Tab*) 150 mg PO BEDTIME [facility] Vital Signs - 8 hr 04/01/18 04/01/18 04/01/18 01:00 02:00 03:04 Temperature Pulse Rate 66 64 75 Respiratory Rate Blood Pressure (mmHg) O2 Sat by Pulse 98 97 97 Oximetry 04/01/18 04/01/18 04/01/18 03:18 04:00 04:51 Temperature 100.0 F Pulse Rate 72 79 78 Respiratory 18 Rate Blood Pressure 128/71 128/71 (mmHg) O2 Sat by Pulse 96 97 100 Oximetry 04/01/18 04/01/18 05:15 07:48 Temperature 99.3 F 99.6 F Pulse Rate 84 70 Respiratory 22 18 Rate Blood Pressure 142/68 148/78 (mmHg) O2 Sat by Pulse 98 97 Oximetry Oxygen Devices in Use Now: None Appearance: 58 yo male A+Ox3 in NAD Eyes: No Scleral Icterus, PERRLA Ears/Nose/Mouth/Throat: NL Teeth, Lips, Gums, Mucous Membranes Moist Respiratory: Symmetrical Chest Expansion and Respiratory Effort, Clear to Auscultation Cardiovascular: NL Sounds; No Murmurs; No JVD, RRR, No Edema Abdominal: - Extremities: No Edema, No Clubbing, Cyanosis Skin: No Rash or Ulcers Neurological: Alert and Oriented x 3, NL Sensation, NL Muscle Strength and Tone Lines/Tubes/Other Access: Clean, Dry and Intact Peripheral IV Nutrition: Taking PO's Result Diagrams: 04/01/18 05:52 04/01/18 05:52 Additional Lab and Data: Lab Results 03/31/18 03/31/18 03/31/18 Range/Units 18:22 18:22 18:25 WBC 6.6 (3.5-10.8) 10^3/ul RBC 3.54 L (4.00-5.40) 10^6/ul Hgb 10.8 L (14.0-18.0) g/dl Hct 32 L (42-52) % MCV 90 (80-94) fL MCH 31 (27-31) pg MCHC 34 (31-36) g/dl RDW 15 (10.5-15) % Plt Count 121 L (150-450) 10^3/ul MPV 6.9 L (7.4-10.4) um3 Neut % (Auto) 88.5 H (38-83) % Lymph % (Auto) 3.9 L (25-47) % Hayes % (Auto) 7.3 H (0-7) % Eos % (Auto) 0 (0-6) % Baso % (Auto) 0.3 (0-2) % Absolute Neuts (auto) 5.8 (1.5-7.7) 10^3/ul Absolute Lymphs (auto) 0.3 L (1.0-4.8) 10^3/ul Absolute Monos (auto) 0.5 (0-0.8) 10^3/ul Absolute Eos (auto) 0 (0-0.6) 10^3/ul Absolute Basos (auto) 0 (0-0.2) 10^3/ul Absolute Nucleated RBC 0 10^3/ul Nucleated RBC % 0 Sodium 133 L (135-145) mmol/L Potassium 3.1 L (3.5-5.0) mmol/L Chloride 103 (101-111) mmol/L Carbon Dioxide 23 (22-32) mmol/L Anion Gap 7 (2-11) mmol/L BUN 16 (6-24) mg/dL Creatinine 0.98 (0.67-1.17) mg/dL Est GFR ( Amer) 95.1 (>60) Est GFR (Non-Af Amer) 78.6 (>60) BUN/Creatinine Ratio 16.3 (8-20) Glucose 116 H (70-100) mg/dL Lactic Acid 0.5 (0.5-2.0) mmol/L Calcium 8.4 L (8.6-10.3) mg/dL Total Bilirubin 1.00 (0.2-1.0) mg/dL AST 19 (13-39) U/L ALT 25 (7-52) U/L Alkaline Phosphatase 44 (34-104) U/L C-Reactive Protein 161.67 H (<8.01) mg/L Total Protein 7.3 (6.4-8.9) g/dL Albumin 4.1 (3.2-5.2) g/dL Globulin 3.2 (2-4) g/dL Albumin/Globulin Ratio 1.3 (1-3) Lipase 13 (11.0-82.0) U/L Urine Color Urine Appearance Urine pH (5-9) Ur Specific [place] (1.010-1.030) Urine Protein (Negative) Urine Ketones (Negative) Urine Blood (Negative) Urine Nitrate (Negative) Urine Bilirubin (Negative) Urine Urobilinogen (Negative) Ur Leukocyte Esterase (Negative) Urine WBC (Auto) (Absent) Urine RBC (Auto) (Absent) Ur Squamous Epith Cells (Absent) Urine Bacteria (Absent) Urine Glucose (Negative) 03/31/18 Range/Units 20:10 WBC (3.5-10.8) 10^3/ul RBC (4.00-5.40) 10^6/ul Hgb (14.0-18.0) g/dl Hct (42-52) % MCV (80-94) fL MCH (27-31) pg MCHC (31-36) g/dl RDW (10.5-15) % Plt Count (150-450) 10^3/ul MPV (7.4-10.4) um3 Neut % (Auto) (38-83) % Lymph % (Auto) (25-47) % Hayes % (Auto) (0-7) % Eos % (Auto) (0-6) % Baso % (Auto) (0-2) % Absolute Neuts (auto) (1.5-7.7) 10^3/ul Absolute Lymphs (auto) (1.0-4.8) 10^3/ul Absolute Monos (auto) (0-0.8) 10^3/ul Absolute Eos (auto) (0-0.6) 10^3/ul Absolute Basos (auto) (0-0.2) 10^3/ul Absolute Nucleated RBC 10^3/ul Nucleated RBC % Sodium (135-145) mmol/L Potassium (3.5-5.0) mmol/L Chloride (101-111) mmol/L Carbon Dioxide (22-32) mmol/L Anion Gap (2-11) mmol/L BUN (6-24) mg/dL Creatinine (0.67-1.17) mg/dL Est GFR ( Amer) (>60) Est GFR (Non-Af Amer) (>60) BUN/Creatinine Ratio (8-20) Glucose (70-100) mg/dL Lactic Acid (0.5-2.0) mmol/L Calcium (8.6-10.3) mg/dL Total Bilirubin (0.2-1.0) mg/dL AST (13-39) U/L ALT (7-52) U/L Alkaline Phosphatase (34-104) U/L C-Reactive Protein (<8.01) mg/L Total Protein (6.4-8.9) g/dL Albumin (3.2-5.2) g/dL Globulin (2-4) g/dL Albumin/Globulin Ratio (1-3) Lipase (11.0-82.0) U/L Urine Color Meenakshi Urine Appearance Cloudy Urine pH 5.0 (5-9) Ur Specific [place] 1.026 (1.010-1.030) Urine Protein 1+(30 mg/dl) A (Negative) Urine Ketones 1+ A (Negative) Urine Blood Negative (Negative) Urine Nitrate Negative (Negative) Urine Bilirubin Negative (Negative) Urine Urobilinogen Negative (Negative) Ur Leukocyte Esterase Negative (Negative) Urine WBC (Auto) Trace(0-5/hpf) (Absent) Urine RBC (Auto) Absent (Absent) Ur Squamous Epith Cells Present A (Absent) Urine Bacteria Absent (Absent) Urine Glucose Negative (Negative) Microbiology and Other Data: Microbiology 04/01/18 00:45 Influenza Types A,B Antigen - Final Nasopharyngeal Specimen received for Influenza A/B Molecular testing Assess/Plan/Problems-Billing Assessment: 58 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 - started with Fever, chills (rigors?), body aches, abdominal pain/ and distention - abdominal pain improved after formed BM, but continues to have distention. CT scan showing concern for mid-transverse colon mass. Discussed with GI - plan for colonoscopy tomorrow. GI prep to be given this evening. Pt did have normal colonoscopy within the last fews years. - continue vanco/zosyn until blood cx result. - fever now low grade. No leukocytosis. - Hold Sprycel - discussed with Dr. Steele oncologist - should hold med in setting of acute infection. Pt reported his onc office recommended holding for 2 -3 days prior to colonoscopy they think in regards to bleeding risk - Dr. Steele did not think this was necessary and could go ahead with procedure tomorrow. (2) Colonic mass Comment: npo except meds gi consult pending (3) Abdominal pain Comment: no sig pain serial abdominal exams (4) Chronic anemia Status: Acute Comment: stable moninter cbc trend (5) HTN (hypertension) Comment: wnl continue outpt med (6) Insomnia Comment: prn trazadone Status and Disposition: inpatient with fever, possible colonic mass
[2018-04-01] MEDS ORDERED: Indomethacin CAP* 50 MG PO SCH (09:00)
[2018-04-01] MEDS: Vancomycin(*) 1,500 MG in NS 0.9% 250 ML* 250 ML IVPB SCH ×2 (10:28→23:55)
[2018-04-01] MEDS: Acetaminophen TAB* 325 MG PO PRN ×2 (13:34→18:00)
[2018-04-01] MEDS ORDERED: Pneumococcal *Vac Polyvalent 0.5 ML VIAL IM ONE (14:00)
[2018-04-01] MEDS ORDERED: PEG 3000 GI LAVAGE* 1 GALLON PO ONE (17:00)
--- NOTE | 2018-04-01 19:35 | CONS ---
CONSULTATION REPORT: DATE OF CONSULT: 04/01/18 REQUESTING PROVIDER: Dr. Mary Ellen Moon. REASON FOR CONSULT: Abnormal CT scan. HISTORY OF PRESENT ILLNESS: This is a very pleasant 58-year-old male with past medical history of CML, who presented with abdominal pain for 2 days. He described it as intermittent and dull and associated with new-onset constipation. He does take stool softeners on a chronic basis, but states that pain has been worse over the last few days. He denies any gross black or blood in the stool. He does feel better after the bowel movement. He had a subjective fever at home, but no further fever, chills, or rigors since admission. He denies any reflux, heartburn. Denies any dysphagia or odynophagia. No nausea or emesis. He has been on Gleevec for his CML with good response and is followed by an oncology group at [facility]. Currently, he states that he has minimal abdominal pain. Denies any skin rashes or lesions. No shortness of breath or chest pain. PAST MEDICAL HISTORY: CML, spinal stenosis, and insomnia. PAST SURGICAL HISTORY: He had a colonoscopy with Dr. Bennett Berrios on 10/17/16 , the preparation was poor, he did have hepatic flexure polyp, there was a tubular adenoma and sigmoid diverticulosis coli. ALLERGIES: No known drug allergies. FAMILY HISTORY: Denies any history of GI cancer or inflammatory bowel disease. SOCIAL HISTORY: Prior tobacco smoker. Prior alcohol user. No history of IV drug use. REVIEW OF SYSTEMS: The remainder of the 14-point review of systems is grossly negative. DICTATION ENDS ABRUPTLY [id number]/[facility] #: [id number] [facility]ITAL[facility]el[facility]
[2018-04-01] MEDS: Losartan TAB* 25 MG PO SCH (20:57)
[2018-04-01] MEDS: traZODone TAB* 50 MG TAB PO SCH (20:57)
[2018-04-01] MEDS: Atorvastatin* 10 MG TAB PO SCH (20:57)
--- NOTE | 2018-04-01 21:45 | CONS ---
CC: Dr. Mary Ellen Moon CONSULTATION REPORT: DATE OF CONSULT: 04/01/18 REQUESTING PHYSICIAN: Dr. Mary Ellen Moon. REASON FOR CONSULT: Abnormal CAT scan. HISTORY OF PRESENT ILLNESS: This is a very pleasant 58-year-old male with a past medical history of CML, who is on oral dasatinib therapy for the last year and half or so, who initially presented to the ER with a subjective fever and abdominal pain. He states that he has been increasingly constipated over the last 4 to 5 days, but on deeper questioning he admits to more frequent constipation requiring the use of both MiraLAX and stool softeners over the last few months. The pain is intermittent, cramping in the lower quadrant. It is certainly better after a bowel movement. He initially had some possible shakes when he arrived, but has had no more fever, chills, or rigors since admission here. He did have a previous colonoscopy with Dr. Subhash Berrios in September of 2016, for which there was a poor preparation and a tubular adenoma was identified. He denies any gross melena or hematochezia. No nausea or emesis. No dysphagia or odynophagia. No significant heartburn on a regular basis. He denies any significant weight loss or gain. PAST MEDICAL HISTORY: Chronic CML, spinal stenosis, and chronic insomnia. PAST SURGICAL HISTORY: As above mentioned, colonoscopy in September of 2016, with Dr. Subhash Berrios, revealed a tubular adenoma and poor prep. HOME MEDICATIONS: Include: 1. Dasatinib. 2. Indomethacin. 3. Losartan/hydrochlorothiazide. 4. Pravastatin. 5. Trazodone. ALLERGIES: No known drug allergies. FAMILY HISTORY: Denies any colon cancer or GI cancer. SOCIAL HISTORY: Prior tobacco user. Prior alcohol, but none in 12 years. REVIEW OF SYSTEMS: The remainder of the 14-point review of systems is grossly negative. PHYSICAL EXAM: Vital Signs: Blood pressure is 137/70, pulse is 87, respiratory rate is 18, he is 97% on room air, and his temperature is 99.8. In general, he is alert and oriented x3, in no acute distress. HEENT: Atraumatic , normocephalic. Pupils are equal, round, reactive to light. Extraocular movements are intact. Conjunctivae are pink. Sclerae are anicteric. Cardiovascular: Regular rate and rhythm. S1, S2. Respiratory: Clear to auscultation bilaterally. Abdomen: Soft, nontender, nondistended. Bowel sounds positive. No shifting dullness. There is no guarding or rebound tenderness. Extremities: No clubbing, no cyanosis. Skin is without significant rashes or lesions. Neuro exam is nonfocal. Psych: He has appropriate mood and affect. DIAGNOSTIC STUDIES/LAB DATA: Hemoglobin is 10.9, WBC count is 4.9, platelet count on 03/31/18 was 121. INR is 1.10. Potassium 3.4, glucose is 117. His CRP is 161. He had testing for influenza A and B, which was negative. He had an abdomen and pelvis CT scan due to his change in bowel habits and this revealed a segmental area of circumferential wall thickening involving the mid sigmoid colon with mild prominence of the colon prior to this narrowing. There was minimal adjacent stranding. The remaining colon was normal according to the activity therapy teacher from the radiologist. The patient had a chest x-ray, which showed mild right basilar atelectasis versus early consolidation. ASSESSMENT AND PLAN: This is a pleasant 58-year-old male with CML, who now presents with an abnormal CAT scan. 1. Abnormal CAT scan. The patient has no leukocytosis, has been afebrile. His abdominal pain is better after having moved his bowels. No evidence of inflammatory process on the CAT scan. We will go ahead and proceed with direct visualization with colonoscopy on 04/02/18. 2. CML, stable on dasatinib therapy , follows at [facility] on a chronic basis. 3. Constipation. Will likely need intensification of regimen. May need to take his MiraLAX twice daily and may consider additional medications in the future. [id number]/[facility] #: [id number] [facility]
[2018-04-02] MEDS: Acetaminophen TAB* 325 MG PO PRN ×2 (02:04→19:26)
[2018-04-02] MEDS: Piperacillin/Tazobac ADVAN(*) 3.375 GM in NS 0.9% 100 ML* 100 ML IVPB SCH ×3 (04:57→23:01)
[2018-04-02] MEDS: Heparin VIAL(*) 5000 UNITS/ML VIAL (FIVE THOUSAND) SUBCUT SCH ×3 (05:15→22:57)
[2018-04-02 05:57] LABS: ABS Basophils 0 10^3/ul (0-0.2); ABS Eosinophils 0 10^3/ul (0-0.6); ABS Lymphocytes 0.4 10^3/ul (1.0-4.8); ABS Monocytes 0.4 10^3/ul (0-0.8); ABS Neutrophils 3.4 10^3/ul (1.5-7.7); ABS Nucleated RBC 0 10^3/ul; Eosinophil % 0.5 % (0-6); Hematocrit 28 % (42-52); Hemoglobin 9.9 g/dl (14.0-18.0); Lymphocyte % 9.4 % (25-47); Mean Corpuscular HGB Conc 35 g/dl (31-36); Mean Corpuscular Hemoglobin 31 pg (27-31); Mean Corpuscular Volume 88 fL (80-94); Mean Platelet Volume 6.8 um3 (7.4-10.4); Nucleated Red Blood Cells % 0; Platelet Count 88 10^3/ul (150-450); Red Blood Count 3.19 10^6/ul (4.00-5.40); Red Cell Distribution Width 15 % (10.5-15); White Blood Count 4.2 10^3/ul (3.5-10.8)
[2018-04-02] MEDS ORDERED: PEG 3000 GI LAVAGE* 1 GALLON PO ONE (06:00)
[2018-04-02 06:09] LABS: EGFR Non-African American 102.2 (>60)
[2018-04-02] MEDS ORDERED: Potassium Chloride LIQUID* 20 MEQ PACKET ONE (06:33)
[2018-04-02] MEDS ORDERED: Potassium Chlor TAB* 20 MEQ TAB.ER PO ONE ×2 (07:00→15:39)
[2018-04-02] MEDS ORDERED: NS 0.9% w/ 40 Meq KCL 1000 ML* 1,000 ML IV ONE (07:00)
[2018-04-02] MEDS: Vancomycin(*) 1,500 MG in NS 0.9% 250 ML* 250 ML IVPB SCH (11:48)
[2018-04-02] MEDS ORDERED: KCL 20 MEQ/100 ML IVPREMIX* 20 MEQ/100 ML BAG IV ONE (12:06)
--- NOTE | 2018-04-02 12:08 | PN ---
Subjective Date of Service: 04/02/18 Interval History: Patient reports he feels a little better today but continue to have gas, bloating and distention. No fevers or chills. No nausea. Reports RLQ pain is about the same reporting "more of a discomfort". Reports starting the colon prep last night and has had multiple BMs. No fevers or chills. Family History: Findings - denied htn/cm/cad/cva/cml Social History: Findings - no cig for 30 yrs no etoh for 12 yrs no ivda walks indept lives alone Past Medical History: Findings - phx cml chronic anemia hg is 10.5 base hx of etoh but quit 12 yrs ago spinal stenosis htn chronic insomnia pshx one Objective Active Medications: Acetaminophen (Tylenol Tab*) 650 mg PO Q4H PRN PRN Reason: FEVER/PAIN Last Admin: 04/02/18 02:04 Dose: 650 mg Atorvastatin Calcium (Lipitor*) 10 mg PO 2100 [facility] Last Admin: 04/01/18 20:57 Dose: 10 mg Heparin Sodium (Porcine) (Heparin Vial(*)) 5,000 units SUBCUT Q8HR [facility] Last Admin: 04/02/18 05:15 Dose: Not Given Piperacillin Sod/Tazobactam (Sod 3.375 gm/ Sodium Chloride) 100 mls @ 25 mls/ hr IVPB Q8H [facility] Last Admin: 04/02/18 04:57 Dose: 25 mls/hr Vancomycin HCl 1,500 mg/ (Sodium Chloride) 250 mls @ 166.667 mls/hr IVPB Q12H [facility] Last Admin: 04/02/18 11:48 Dose: 166.667 mls/hr Potassium Chloride/Sodium Chloride (Ns 0.9% W/ 40 Meq Kcl 1000 Ml*) 1,000 mls @ 100 mls/hr IV ONCE ONE Stop: 04/02/18 16:59 Last Admin: 04/02/18 09:58 Dose: 100 mls/hr Potassium Chloride (Potassium Chloride 20 Meq/100 Ml Ivpremix*) 20 meq in 100 mls @ 50 mls/hr IV ONCE ONE Stop: 04/02/18 14:05 Indomethacin (Indocin Cap*) 50 mg PO TID PRN PRN Reason: PAIN Losartan Potassium (Cozaar Tab*) 50 mg PO 2100 [facility] Last Admin: 04/01/18 20:57 Dose: 50 mg Pharmacy Consult (Vancomycin Per Pharmacy*) 1 note FOLLOW UP . PRN PRN Reason: PER PROTOCOL Pharmacy Profile Note (Vancomycin Trough Check) 1 note FOLLOW UP 1030 ONE Stop: 04/03/18 10:31 Trazodone HCl (Desyrel Tab*) 150 mg PO BEDTIME [facility] Last Admin: 04/01/18 20:57 Dose: 150 mg Vital Signs - 8 hr 04/02/18 04/02/18 07:28 07:49 Temperature 97.2 F Pulse Rate 69 Respiratory 18 18 Rate Blood Pressure 132/64 (mmHg) O2 Sat by Pulse 100 Oximetry Oxygen Devices in Use Now: None Appearance: 58 yo male A+O x3 in NAD Eyes: No Scleral Icterus, PERRLA Ears/Nose/Mouth/Throat: NL Teeth, Lips, Gums, Mucous Membranes Moist Neck: NL Appearance and Movements; NL JVP Respiratory: Symmetrical Chest Expansion and Respiratory Effort, Clear to Auscultation Cardiovascular: NL Sounds; No Murmurs; No JVD, RRR, No Edema Abdominal: - - distended soft, NT - hyperactive BS Extremities: No Edema, No Clubbing, Cyanosis Skin: No Rash or Ulcers, No Nodules or Sclerosis Neurological: Alert and Oriented x 3, NL Sensation, NL Muscle Strength and Tone Lines/Tubes/Other Access: Clean, Dry and Intact Peripheral IV Nutrition: - - NPO Result Diagrams: 04/02/18 05:42 04/02/18 05:42 Additional Lab and Data: Lab Results Microbiology and Other Data: Microbiology 04/01/18 00:45 Influenza Types A,B Antigen - Final Nasopharyngeal Specimen received for Influenza A/B Molecular testing EKG Data: ekg ns no acute st t changes Assess/Plan/Problems-Billing Assessment: 58 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 - started with Fever, chills (rigors?), body aches, abdominal pain/and distention - abdominal pain improving but still reports discomfort - continues to have distention. CT scan showing concern for mid-transverse colon mass. Today afebrile. - Plan for colonoscopy today. GI prep. Pt did have normal colonoscopy within the last fews years. - Blood cx NTD - afebrile. No leukocytosis. - Hold Sprycel - discussed with Dr. Steele oncologist - should hold med in setting of acute infection. Pt reported his onc office recommended holding for 2 -3 days prior to colonoscopy they think in regards to bleeding risk - Dr. Steele did not think this was necessary and could go ahead with procedure tomorrow. - continue zosyn - until after results of colonoscopy (2) Colonic mass Comment: npo except meds gi consult pending (3) Abdominal pain Comment: no sig pain serial abdominal exams (4) Chronic anemia Status: Acute Comment: stable moninter cbc trend (5) HTN (hypertension) Comment: wnl continue outpt med (6) Insomnia Comment: prn trazadone Status and Disposition: inpatient with fever, possible colonic mass
[2018-04-02] MEDS ORDERED: fentaNYL* 50 MCG/ML 2 ML VIAL (100 MCG VIAL) ONE (13:04)
[2018-04-02] MEDS ORDERED: Midazolam* 1 MG/ML 10 ML VIAL (10 MG) ONE (13:04)
[2018-04-02] MEDS: Losartan TAB* 25 MG PO SCH (19:25)
[2018-04-02] MEDS: Atorvastatin* 10 MG TAB PO SCH (19:26)
[2018-04-02] MEDS: traZODone TAB* 50 MG TAB PO SCH (19:27)
[2018-04-03] MEDS: Acetaminophen TAB* 325 MG PO PRN ×2 (02:42→08:25)
--- NOTE | 2018-04-03 05:14 | PRO ---
CC: Dr. Yap PROCEDURE REPORT: DATE OF PROCEDURE: 04/02/18 PROCEDURE: Incomplete colonoscopy. INDICATIONS: Colitis. REFERRING PHYSICIAN: Dr. Yap. MEDICATIONS GIVEN: 1. 75 mcg IV fentanyl. 2. 9 mg IV Versed. DESCRIPTION OF PROCEDURE: After the colonoscopy procedure including the risks, benefits, and alterna tives, not limited to perforation, surgery, and/or were explained to the patient written consen t was then obtained, IV medication was given and a rectal exam was performed. It was unremarkable. The Olympus colonoscope was then inserted into the patient's rectum and advanced to approximately the mid transverse colon. The patient does have melanosis coli throughout. He also has mild diverticul osis. Navigating the scope up to the distal sigmoid colon was relatively easy; however, then the muc melissa became very swollen and thickened. It was difficult to distinguish where the lumen was. I was a ble to gently torque, turn, and withdraw the scope and slowly advance through this area and through t he splenic flexure did require external hand support. I was then able to advance into the distal tra nsverse colon where the mucosa became completely normal. The vascular pattern was crisp. From the d istal transverse to proximal sigmoid, there was no vascular pattern at all in this area of swelling a nd edema. This really was not classic for any certain diagnosis. I did take numerous biopsies. It does potentially have an appearance of healing ischemic colitis. The scope was then withdrawn from [facility] patient. I did not want to advance the scope any further due to the inflammation. The splenic fl exure and rectum retroflexion maneuver revealed internal hemorrhoids. The scope was withdrawn from [facility] patient. He tolerated the procedure well and was returned to this hospital room in stable conditi on. IMPRESSION: 1. Incomplete colonoscopy to the mid transverse colon with biopsies. 2. Melanosis coli. 3. Diverticulosis. 4. Swelling and edema around the splenic flexure in the transverse to the proximal sigmoid, potentia lly consistent with an ischemic colitis that is resolving and healing. Biopsies were obtained to fur ther elucidate the etiology. The patient does tell me that he was having some generalized pain over the past few weeks, I wonder if this could be healing ischemic colitis. We will follow up on the bio [facility]/ [id number]/[facility] #: [id number]
[2018-04-03] MEDS: Piperacillin/Tazobac ADVAN(*) 3.375 GM in NS 0.9% 100 ML* 100 ML IVPB SCH (05:21)
[2018-04-03] MEDS: Heparin VIAL(*) 5000 UNITS/ML VIAL (FIVE THOUSAND) SUBCUT SCH ×2 (05:22→13:53)
[2018-04-03 07:15] LABS: ABS Basophils 0 10^3/ul (0-0.2); ABS Eosinophils 0.1 10^3/ul (0-0.6); ABS Lymphocytes 0.3 10^3/ul (1.0-4.8); ABS Monocytes 0.3 10^3/ul (0-0.8); ABS Neutrophils 2.7 10^3/ul (1.5-7.7); ABS Nucleated RBC 0 10^3/ul; Hematocrit 27 % (42-52); Hemoglobin 9.5 g/dl (14.0-18.0); Mean Corpuscular HGB Conc 35 g/dl (31-36); Mean Corpuscular Hemoglobin 31 pg (27-31); Mean Corpuscular Volume 89 fL (80-94); Mean Platelet Volume 7.1 um3 (7.4-10.4); Nucleated Red Blood Cells % 0; Platelet Count 101 10^3/ul (150-450); Red Blood Count 3.08 10^6/ul (4.00-5.40); Red Cell Distribution Width 15 % (10.5-15); White Blood Count 3.5 10^3/ul (3.5-10.8)
[2018-04-03 07:30] LABS: EGFR Non-African American 92.6 (>60)
[2018-04-03] MEDS ORDERED: Potassium Chlor TAB* 20 MEQ TAB.ER PO ONE (09:11)
[2018-04-03] MEDS: KCL 20 MEQ/100 ML IVPREMIX* 20 MEQ/100 ML BAG IV SCH ×2 (10:23→12:46)
[2018-04-03] MEDS ORDERED: Vancomycin Trough Check NOTE FOLLOW UP ONE (10:30)
[2018-04-03 11:52] VITALS: BP 138/81
--- NOTE | 2018-04-03 13:25 | DCNOTE ---
Subjective Date of Service: 04/03/18 Family History: Findings - denied htn/cm/cad/cva/cml Social History: Findings - no cig for 30 yrs no etoh for 12 yrs no ivda walks indept lives alone Past Medical History: Findings - phx cml chronic anemia hg is 10.5 base hx of etoh but quit 12 yrs ago spinal stenosis htn chronic insomnia pshx one Objective Active Medications: Acetaminophen (Tylenol Tab*) 650 mg PO Q4H PRN PRN Reason: FEVER/PAIN Last Admin: 04/03/18 08:25 Dose: 650 mg Atorvastatin Calcium (Lipitor*) 10 mg PO 2100 [facility] Last Admin: 04/02/18 19:26 Dose: 10 mg Heparin Sodium (Porcine) (Heparin Vial(*)) 5,000 units SUBCUT Q8HR [facility] Last Admin: 04/03/18 05:22 Dose: 5,000 units Potassium Chloride (Potassium Chloride 20 Meq/100 Ml Ivpremix*) 20 meq in 100 mls @ 50 mls/hr IV Q2H [facility] Stop: 04/03/18 13:59 Last Admin: 04/03/18 12:46 Dose: 50 mls/hr Indomethacin (Indocin Cap*) 50 mg PO TID PRN PRN Reason: PAIN Losartan Potassium (Cozaar Tab*) 50 mg PO 2100 [facility] Last Admin: 04/02/18 19:25 Dose: 50 mg Trazodone HCl (Desyrel Tab*) 150 mg PO BEDTIME [facility] Last Admin: 04/02/18 19:27 Dose: 150 mg Vital Signs - 8 hr 04/03/18 04/03/18 04/03/18 07:24 08:20 11:48 Temperature 98.3 F 98.3 F Pulse Rate 62 68 Respiratory 16 16 19 Rate Blood Pressure 138/76 138/81 (mmHg) O2 Sat by Pulse 98 97 Oximetry Oxygen Devices in Use Now: None Result Diagrams: 04/03/18 07:05 04/03/18 07:05 Additional Lab and Data: Lab Results Microbiology and Other Data: Microbiology 04/01/18 00:45 Influenza Types A,B Antigen - Final Nasopharyngeal Specimen received for Influenza A/B Molecular testing EKG Data: ekg ns no acute st t changes Assess/Plan/Problems-Billing Assessment: 58 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 - started with Fever, chills (rigors?), body aches, abdominal pain/and distention - abdominal pain improving but still reports discomfort - continues to have distention. CT scan showing concern for mid-transverse colon mass. - Plan for colonoscopy today. GI prep. Pt did have normal colonoscopy within the last fews years. - Blood cx NTD - afebrile. No leukocytosis. - Hold Sprycel - discussed with Dr. Steele oncologist - should hold med in setting of acute infection. Pt reported his onc office recommended holding for 2 -3 days prior to colonoscopy they think in regards to bleeding risk - Dr. Steele did not think this was necessary and could go ahead with procedure tomorrow. - continue zosyn - until after results of colonoscopy (2) Colonic mass Comment: npo except meds gi consult pending (3) Abdominal pain Comment: no sig pain serial abdominal exams (4) Chronic anemia Status: Acute Comment: stable moninter cbc trend (5) HTN (hypertension) Comment: wnl continue outpt med (6) Insomnia Comment: prn trazadone Status and Disposition: inpatient with fever, possible colonic mass
[2018-04-03] MEDS ORDERED: KCL 20 MEQ/100 ML IVPREMIX* 20 MEQ/100 ML BAG IV ONE ×2 (14:26→14:27)
--- NOTE | 2018-04-04 02:59 | DS ---
CC: Dr. Yap; Dr. Jaydon Zapata* DISCHARGE SUMMARY: DATE OF ADMISSION: 04/01/18 DATE OF DISCHARGE: 04/03/18 PROVIDER: Eric Honeycutt NP ATTENDING PHYSICIAN: Dr. Crowell* (report dictated by Eric Honeycutt NP). PRIMARY CARE PROVIDER: Dr. Yap. ONCOLOGIST: From [facility], Dr. Jaydon Zapata. His fax number is [phone]. DISCHARGE DIAGNOSES: 1. Fever of unclear etiology, possible virus versus ischemic colitis. 2. Abdominal pain secondary to possible ischemic colitis. 3. Hypokalemia. 4. Chronic myeloid leukemia. HISTORY OF PRESENT ILLNESS AND HOSPITAL COURSE: Please see history and physical by Dr. Mary Ellen Moon for full admission details, but in summary, this is a 58-year-old male with a past medical history of CML, currently being treated on Sprycel and is followed at [facility] by Dr. Jaydon Zapata. He presented to the emergency department reporting 2 days of abdominal distention, pain and reported a fever of 102, which brought him to the emergency department. He reported he had constipation for 1 day, which was unusual for him. In the emergency department, he underwent an abdomen and pelvis CT, which showed impression: "1. Concerning findings of a primary neoplasm involving the mid transverse colon. Correlation with colonoscopy recommended. 2. Nonspecific right perinephric inflammation with no additional evidence of pyelonephritis. 3. Small right pleural effusion associated with right lower lobe volume loss." The patient was admitted to the hospitalist service where he was started on vancomycin and Zosyn. Blood cultures were sent, which were negative with no growth. On admission, the patient had a low-grade fever of 100 in which he continued to have intermittent low-grade fevers for 2 days but has been afebrile over the last 36 hours. The patient was seen in consultation by Dr. Dwyer, endoscopic technician who recommended a colonoscopy, but felt due to the imaging that it was possible that it was artifact. On 04/02/18, the patient underwent a colonoscopy with endoscopic technician, Dr. Lazar in which I spoke to him about the procedure and the results. Please see his note for full details of the procedure, but in summary, Dr. Lazar reports swelling and edema around the splenic flexure and the transverse to proximal sigmoid potentially consistent with ischemic colitis that is resolving and healing. Biopsies were obtained and are pending at this time. Postcolonoscopy, the patient was started on a regular diet, which he has tolerated well. He continues to be slightly distended; however, this is improved over the past 24 hours. The patient also reports his abdominal pain is resolved. He denies any diarrhea or bloody stools. No further fevers or chills. The patient feels well and would like to be discharged home today. GI agrees the plan for discharge to home. Again, it is unclear if this is in fact ischemic colitis. Initially the patient's symptoms started with fever, chills, headache, and body ache, it is possible this is viral gastroenteritis. As well, it is noted that the patient's Sprycel was increased within the last week. I did discuss this with Dr. Steele, our oncologist on-call as the patient did report that he was told by his oncologist's office physician's graduate assistant that this should be held 2 to 3 days prior to the colonoscopy and prior to him having a colonoscopy, I spoke to Dr. Steele. She said there was no need to wait 2 to 3 days and he could proceed with the colonoscopy. She also recommended that this be restarted as soon as the patient was feeling better in which the patient was instructed to restart it today. He is to follow up with his oncologist and his primary care provider. His is at the bedside. Discharge plan was discussed at length. The patient was stable for discharge home. In regards to the patient's labs, he had no leukocytosis. His white blood cell count remained within normal limits. His hemoglobin and hematocrit are stable as well as platelets are stable. He was noted to be hypokalemic after his admission and this was thought to be secondary to the GI prep and the diarrhea he experienced. He was given IV replacement. He was instructed that he will need followup chemistry profile to check his potassium early next week. Urinalysis was unremarkable and he was negative for influenza A and B. As well , blood cultures were negative with no growth. DISCHARGE MEDICATIONS: 1. Sprycel 180 mg p.o. daily. 2. Trazodone 150 mg p.o. at bedtime. 3. Pravastatin 40 mg p.o. daily. 4. Losartan/hydrochlorothiazide 100/12.5 mg half tablet p.o. daily. 5. Indomethacin 50 mg p.o. t.i.d. p.r.n. DISCHARGE PLAN: 1. The patient is to be discharged to home. 2. He is to follow up with his primary care provider early next week, Thursday or Thursday as the patient has travel plans mid week. It was discussed with the patient he needs to have a CBC and BMP on Thursday to check his potassium level. 3. As well, the patient has plans to follow up with his primary oncologist. 4. The patient was instructed to return to the emergency department with any further worsening or concerning symptoms. TIME SPENT: Approximately 60 minutes was spent on this discharge. Please do not hesitate to call me if you have any questions regarding Mr. Hernandez 's hospitalization. My cell phone number is [phone]. ERIC HONEYCUTT NP [id number]/[facility] #: [id number] CHARLIE
== END 2018-04-03 16:20 | disposition home or self-care (01) | DRG 246 ==
LOC: ED 17:37 → MED 04-01 04:19
PROVIDERS: ADMIT Internal Medicine; ATTEND Internal Medicine
PROC: 0DBN8ZX Excision of Sigmoid Colon, Via Natural or Artificial Opening Endoscopic, Diagnostic (ICD-10-PCS; principal; 2018-04-02)
PROC: 0DBL8ZX Excision of Transverse Colon, Via Natural or Artificial Opening Endoscopic, Diagnostic (ICD-10-PCS; 2018-04-02)
DX: K55.9 Vascular disorder of intestine, unspecified (principal); C92.10 Chronic myeloid leukemia, BCR/ABL-positive, not having achieved remission; R65.10 Systemic inflammatory response syndrome (SIRS) of non-infectious origin without acute organ dysfunction; J98.11 Atelectasis; A08.4 Viral intestinal infection, unspecified; R50.9 Fever, unspecified; E87.6 Hypokalemia; D63.8 Anemia in other chronic diseases classified elsewhere; F10.21 Alcohol dependence, in remission; M48.00 Spinal stenosis, site unspecified; I10 Essential (primary) hypertension; F51.04 Psychophysiologic insomnia; K63.9 Disease of intestine, unspecified; K59.00 Constipation, unspecified; K63.89 Other specified diseases of intestine; K57.30 Diverticulosis of large intestine without perforation or abscess without bleeding; Z79.899 Other long term (current) drug therapy; Z79.1 Long term (current) use of non-steroidal anti-inflammatories (NSAID); Z79.01 Long term (current) use of anticoagulants; Z79.2 Long term (current) use of antibiotics; Z87.891 Personal history of nicotine dependence
CPT/HCPCS: 36415; 71045; 74177; 80048; 80053; 80202; 81003; 81015; 83605; 83690; 83735; 85025; 85610; 85730; 86140; 87040; 87086; 88305; 90686; 90732; 99156; 99157; 99284; A9270-GY; J1644; J2250; J2543; J3010; J3370; J3480; Q9967

== ENCOUNTER 2018-04-11 10:51 | Emergency (ER) | payer BC ==
--- NOTE | 2018-04-11 11:53 | ED ---
Respiratory - History of Current Complaint Chief Complaint: EDShortnessOfBreath Stated Complaint: SHORT OF BREATH Time Seen by Provider: 04/11/18 11:31 Hx Obtained From: Patient Onset/Duration: Sudden Onset, Lasting Weeks, Still Present Timing: Constant Initial Severity: Mild Current Severity: Mild Pain Intensity: 4 Character: Cough (Productive), Dyspnea on Exertion Sputum Amount: Small Sputum Color: White Aggravating Factor(s): Exertion Alleviating Factor(s): Rest Associated Signs and Symptoms: SOB, Wheezing, Edema, Dyspnea - Allergy/Home Medications Allergies/Adverse Reactions: Allergies Allergy/AdvReac Type Severity Reaction Status Date / Time No Known Allergies Allergy Verified 04/11/18 10:53 PMH/Surg Hx/FS Hx/Imm Hx Previously Healthy: No Cardiovascular History: Reports: Hx Hypercholesterolemia, Hx Hypertension Sensory History: Reports: Hx Contacts or Glasses Denies: Hx Legally Blind, Hx Hearing Aid Opthamlomology History: Reports: Hx Contacts or Glasses Denies: Hx Legally Blind - Cancer History Cancer Type, Location and Year: CML - Surgical History Surgery Procedure, Year, and Place: spinal stenosis cervical, 5 vertebrae fused Infectious Disease History: No Infectious Disease History: Denies: History Other Infectious Disease, Traveled Outside the [place] in Last 30 Days - Family History Known Family History: Negative: Cardiac Disease, Hypertension, Diabetes - Social History Alcohol Use: None Hx Substance Use: No Substance Use Type: Reports: None Hx Tobacco Use: No Smoking Status (MU): Never Smoked Tobacco Review of Systems Negative: Fever, Chills Negative: Chest Pain Positive: Shortness Of Breath, Cough Positive: Other - abd bloating, constipation. Negative: Diarrhea Positive: no symptoms reported Positive: Edema - in joints and abd Positive: Headache. Negative: Numbness All Other Systems Reviewed And Are Negative: Yes Physical Exam - Summary Physical Exam Summary: Appearance: Well appearing, no pain distress Skin: warm, dry, reflects adequate perfusion Head/face: erythematous rash R face, no swelling Eyes: EOMI, CHANNING ENT: mucous membranes moist Neck: supple, non-tender, erythematous rash R side Respiratory: wheezing in bilateral bases, L greater than R, breath sounds present Cardiovascular: RRR, pulses symmetrical, mild JVD Abdomen: non-tender, soft Bowel Sounds: present Musculoskeletal: non-pitting edema 2+ in lower extremity, strength/ROM intact, no hand swelling Neuro: normal, sensory motor intact, A&Ox3 Triage Information Reviewed: Yes Vital Signs On Initial Exam: Initial Vitals Temp Pulse Resp BP Pulse Ox 97.8 F 61 18 181/82 96 04/11/18 10:53 04/11/18 10:53 04/11/18 10:53 04/11/18 10:53 04/11/18 10:53 Vital Signs Reviewed: Yes Diagnostics - Vital Signs Vital Signs Temp Pulse Resp BP Pulse Ox 04/11/18 10:53 97.8 F 61 18 181/82 96 - Laboratory Result Diagrams: 04/11/18 12:48 04/11/18 12:48 Lab Statement: Any lab studies that have been ordered have been reviewed, and results considered in the medical decision making process. - Radiology Chest XRay Xray Interpretation: Positive (See Comments) - 1. PULMONARY INTERSTITIAL EDEMA. 2. SMALL BILATERAL PLEURAL EFFUSIONS. 3. PATCHY BIBASILAR ATELECTASIS VERSUS CONSOLIDATION. Radiology Interpretation Completed By: Radiologist - ED physician has reviewed this report. - EKG 1205 Cardiac Rate: NL - 64bpm EKG Rhythm: Sinus Rhythm ST Segment: Non-Specific Ectopy: None EKG Interpretation: Artifact in lead V6, nml axis, nml interval, non-specific change. Re-Evaluation - Re-Evaluation 1 Re-Evaluation Time: 13:32 Change: Improved Comment: Pt feels better, going to send him home with orders for a followup echocardiogram. Disposition - Course Course Of Treatment: Pt with mild anasarca and new CHF with associated recent increase in his oral chemo for CML. Pt recently d/c this med. Increased CHF on xray without SOB at rest or hypoxia. Able to walk in dept without SOB. Diuresis here. D/W PMD office to arrange prompt f/u and outpt echo. 2wk ago had outpt echo that was "normal" per pt. Pt offered admission but would rather do outpt w/ u. - Differential Dx - Cardiopulmonary Differential Diagnoses - Cardiopulmonary: Acute Coronary, Acute Dyspnea, CAD, Cardiomyopathy, CHF, Exacerbation Of COPD, Hypoxia, Influenza - Diagnoses Provider Diagnoses: Acute CHF (congestive heart failure), Anasarca, Adverse reaction to antineoplastic drug, Hx of chronic myeloid leukemia Discharge - Sign-Out/Discharge Documenting (check all that apply): Patient Departure - home - Discharge Plan Condition: Good Disposition: HOME Prescriptions: Furosemide TAB* [Lasix TAB*] 40 mg PO DAILY #5 tab Metoprolol Tartrate TAB* [Lopressor TAB*] 25 mg PO BID #60 tab Potassium Chlor TAB* [Potassium Chlor TAB 20 MEQ*] 20 meq PO DAILY #7 tab.er Patient Education Materials: Heart Failure (ED) Referrals: Samuel Yap MD [Primary Care Provider] - Additional Instructions: Low sodium diet. Call Dr Yap first thing in the morning to schedule follow up including an Echocardiogram. He has been made aware of this need. Return with increased trouble breathing, worse or other concerns as discussed. Hold your chemo medication. Discuss this with your oncologist at [place]. - Billing Disposition and Condition Condition: GOOD Disposition: Home - Attestation Statements Document Initiated by Rosa Mariaibchantal: Yes Documenting Scribe: Christi Goncalves Provider For Whom Devang is Documenting (Include Credential): Moses Carrizales MD. Scribe Attestation: Christi Argueta, scribed for Moses Carrizales MD. on 04/11/18 at 1604. Scribe Documentation Reviewed: Yes Provider Attestation: The documentation as recorded by the scribeChristi accurately reflects the service I personally performed and the decisions made by , Moses Carrizales MD.
[2018-04-11] MEDS ORDERED: Albuterol/Ipratropium NEB.SOL* Albuterol 2.5 MG/Ipratropium 0.5 MG 3 ML INH ONE (11:56)
--- NOTE | 2018-04-11 12:41 | RAD ---
HISTORY: SOB COMPARISONS: April 08, 2018 VIEWS: 5: Frontal dual-energy and lateral views of the chest. FINDINGS: CARDIOMEDIASTINAL SILHOUETTE: The cardiomediastinal silhouette is normal. ZORAIDA: The zoraida are normal. PLEURA: There are small bilateral pleural effusions. LUNG PARENCHYMA: There is diffuse pattern of reticular opacification with indistinct pulmonary vessels. There is patchy alveolar desiccation of the lung bases bilaterally. ABDOMEN: The upper abdomen is clear. There is no subphrenic gas. BONES AND SOFT TISSUES: The patient is status post anterior cervical fusion. OTHER: None. IMPRESSION: 1. PULMONARY INTERSTITIAL EDEMA. 2. SMALL BILATERAL PLEURAL EFFUSIONS. 3. PATCHY BIBASILAR ATELECTASIS VERSUS CONSOLIDATION.
[2018-04-11] MEDS ORDERED: Furosemide IV* 10 MG/ML 10 ML VIAL (100 MG) IV ONE (12:54)
[2018-04-11 13:00] LABS: ABS Basophils 0.1 10^3/ul (0-0.2); ABS Eosinophils 0.1 10^3/ul (0-0.6); ABS Lymphocytes 0.8 10^3/ul (1.0-4.8); ABS Monocytes 0.4 10^3/ul (0-0.8); ABS Neutrophils 1.9 10^3/ul (1.5-7.7); ABS Nucleated RBC 0 10^3/ul; Eosinophil % 3.2 % (0-6); Hematocrit 30 % (42-52); Hemoglobin 10.1 g/dl (14.0-18.0); Lymphocyte % 24.3 % (25-47); Mean Corpuscular HGB Conc 34 g/dl (31-36); Mean Corpuscular Hemoglobin 30 pg (27-31); Mean Corpuscular Volume 90 fL (80-94); Mean Platelet Volume 6.8 um3 (7.4-10.4); Nucleated Red Blood Cells % 0; Platelet Count 305 10^3/ul (150-450); Red Blood Count 3.37 10^6/ul (4.00-5.40); Red Cell Distribution Width 15 % (10.5-15); White Blood Count 3.3 10^3/ul (3.5-10.8)
[2018-04-11 13:07] LABS: INR 1.08 (0.77-1.02)
[2018-04-11 13:18] LABS: EGFR Non-African American 87.8 (>60)
[2018-04-11 13:40] VITALS: BP 169/93
== END 2018-04-11 14:03 | disposition home or self-care (01) ==
LOC: ED 10:51
DX: I50.9 Heart failure, unspecified (principal); J18.2 Hypostatic pneumonia, unspecified organism; J91.8 Pleural effusion in other conditions classified elsewhere; R06.02 Shortness of breath; T45.1X5A Adverse effect of antineoplastic and immunosuppressive drugs, initial encounter; Y92.9 Unspecified place or not applicable; Z85.6 Personal history of leukemia
CPT/HCPCS: 36415; 71046; 80053; 83605; 83880; 84484; 85025; 85379; 85610; 86140; 93005; 96374; 99284; A9270-GY; J1940